=== PATIENT | female | born 1975 | race Caucasian/White ===

== ENCOUNTER 2019-12-07 11:48 | Observation (INO) | payer OTHER ==
--- NOTE | 2019-12-07 12:13 | ED ---
General Adult HPI - General Chief complaint: Chest Pain Stated complaint: chest pain, SOB Time Seen by Provider: 12/07/19 12:02 Source: patient, RN notes reviewed, old records reviewed Mode of arrival: ambulatory Limitations: no limitations - History of Present Illness Initial comments: 44-year-old female presented for evaluation of substernal and left-sided chest pain and pressure. Symptoms 7 present for the past 3 days. She has no known history of DVT or PE. She does report that the pain is worse with deep inspiration. No family history of CAD, no history of diabetes or hypertension. No chronic medical conditions. No fever or cough. No abdominal pain nausea vomiting. No diaphoresis. - Related Data Allergies Allergy/AdvReac Type Severity Reaction Status Date / Time No Known Allergies Allergy Verified 12/07/19 11:52 Review of Systems ROS Statement: Those systems with pertinent positive or pertinent negative responses have been documented in the HPI. ROS Other: All systems not noted in ROS Statement are negative. Past Medical History Past Medical History: No Reported History History of Any Multi-Drug Resistant Organisms: None Reported Past Surgical History: Tubal Ligation Past Psychological History: No Psychological Hx Reported Smoking Status: Never smoker Past Alcohol Use History: Occasional Past Drug Use History: None Reported General Exam Limitations: no limitations General appearance: alert, in no apparent distress Head exam: Present: atraumatic, normocephalic Eye exam: Present: normal appearance, PERRL ENT exam: Present: normal exam Neck exam: Present: normal inspection. Absent: tenderness, meningismus Respiratory exam: Present: normal lung sounds bilaterally. Absent: respiratory distress, wheezes Cardiovascular Exam: Present: regular rate, normal rhythm GI/Abdominal exam: Present: soft. Absent: distended, tenderness, guarding Extremities exam: Present: normal inspection, normal capillary refill. Absent: calf tenderness Back exam: Present: normal inspection Neurological exam: Present: alert, oriented X3, CN II-XII intact. Absent: motor sensory deficit Psychiatric exam: Present: normal affect, normal mood Skin exam: Present: warm, dry. Absent: cyanosis, diaphoretic Course Vital Signs 12/07/19 11:49 Temperature 98.7 F Pulse Rate 89 Respiratory 16 Rate Blood Pressure 152/86 O2 Sat by Pulse 99 Oximetry EKG Findings - EKG Comments: EKG Findings:: EKG: Normal sinus rhythm, rate of 88, W[place] interval 142, QRS duration 82, QTC 392, no ST segment elevation Medical Decision Making - Medical Decision Making 44-year-old female with 3 days of chest pain. Pain is left-sided substernal associated with dyspnea. Patient has a EKG showing sinus rhythm with no ST segment elevation. Chest x-ray negative for focal pneumonia, no acute findings. Patient has a normal CBC, normal CMP, negative initial troponin, negative d- dimer. Symptoms persist in the emergency department. I will place in observation for serial cardiac enzymes, troponin, cardiology consultation. Case is discussed with the admitting physician. - Lab Data Result diagrams: 12/07/19 12:07 12/07/19 12:07 Lab Results 12/07/19 12/07/19 12/07/19 Range/Units 12:07 12:07 12:07 WBC 6.1 (3.8-10.6) k/uL RBC 4.84 (3.80-5.40) m/uL Hgb 14.3 (11.4-16.0) gm/dL Hct 42.2 (34.0-46.0) % MCV 87.3 (80.0-100.0) fL MCH 29.6 (25.0-35.0) pg MCHC 34.0 (31.0-37.0) g/dL RDW 12.4 (11.5-15.5) % Plt Count 215 (150-450) k/uL Neutrophils % 63 % Lymphocytes % 26 % Monocytes % 6 % Eosinophils % 2 % Basophils % 1 % Neutrophils # 3.8 (1.3-7.7) k/uL Lymphocytes # 1.6 (1.0-4.8) k/uL Monocytes # 0.4 (0-1.0) k/uL Eosinophils # 0.2 (0-0.7) k/uL Basophils # 0.1 (0-0.2) k/uL PT 10.0 (9.0-12.0) sec INR 1.0 (<1.2) APTT 21.7 L (22.0-30.0) sec D-Dimer 0.28 (<0.60) mg/L FEU Sodium 138 (137-145) mmol/L Potassium 4.4 (3.5-5.1) mmol/L Chloride 103 (98-107) mmol/L Carbon Dioxide 28 (22-30) mmol/L Anion Gap 7 mmol/L BUN 10 (7-17) mg/dL Creatinine 0.78 (0.52-1.04) mg/dL Est GFR (CKD-EPI)AfAm >90 (>60 ml/min/1.73 sqM) Est GFR (CKD-EPI)NonAf >90 (>60 ml/min/1.73 sqM) Glucose 112 H (74-99) mg/dL Calcium 10.1 (8.4-10.2) mg/dL Magnesium 1.7 (1.6-2.3) mg/dL Total Bilirubin 0.4 (0.2-1.3) mg/dL AST 23 (14-36) U/L ALT 13 (4-34) U/L Alkaline Phosphatase 76 (38-126) U/L Troponin I (0.000-0.034) ng/mL Total Protein 7.1 (6.3-8.2) g/dL Albumin 4.2 (3.5-5.0) g/dL Lipase 94 (23-300) U/L 12/06/20 Range/Units 12:07 WBC (3.8-10.6) k/uL RBC (3.80-5.40) m/uL Hgb (11.4-16.0) gm/dL Hct (34.0-46.0) % MCV (80.0-100.0) fL MCH (25.0-35.0) pg MCHC (31.0-37.0) g/dL RDW (11.5-15.5) % Plt Count (150-450) k/uL Neutrophils % % Lymphocytes % % Monocytes % % Eosinophils % % Basophils % % Neutrophils # (1.3-7.7) k/uL Lymphocytes # (1.0-4.8) k/uL Monocytes # (0-1.0) k/uL Eosinophils # (0-0.7) k/uL Basophils # (0-0.2) k/uL PT (9.0-12.0) sec INR (<1.2) APTT (22.0-30.0) sec D-Dimer (<0.60) mg/L FEU Sodium (137-145) mmol/L Potassium (3.5-5.1) mmol/L Chloride (98-107) mmol/L Carbon Dioxide (22-30) mmol/L Anion Gap mmol/L BUN (7-17) mg/dL Creatinine (0.52-1.04) mg/dL Est GFR (CKD-EPI)AfAm (>60 ml/min/1.73 sqM) Est GFR (CKD-EPI)NonAf (>60 ml/min/1.73 sqM) Glucose (74-99) mg/dL Calcium (8.4-10.2) mg/dL Magnesium (1.6-2.3) mg/dL Total Bilirubin (0.2-1.3) mg/dL AST (14-36) U/L ALT (4-34) U/L Alkaline Phosphatase (38-126) U/L Troponin I <0.012 (0.000-0.034) ng/mL Total Protein (6.3-8.2) g/dL Albumin (3.5-5.0) g/dL Lipase (23-300) U/L Disposition Clinical Impression: Chest pain Disposition: ADMITTED IP TO THIS [facility] Condition: Stable Is patient prescribed a controlled substance at d/c from ED?: No Referrals: None,Stated [Primary Care Provider] - 1-2 days Decision to Admit Reason: Admit from EC Decision Date: 12/07/19 Decision Time: 13:40
--- NOTE | 2019-12-07 12:24 | XR ---
EXAMINATION TYPE: XR chest 2V DATE OF EXAM: 12/07/2019 COMPARISON: NONE HISTORY: Chest pain TECHNIQUE: Frontal and lateral views of the chest are obtained. FINDINGS: Patient is rotated. There are overlying cardiac leads. There is no focal air space opacity, pleural effusion, or pneumothorax seen. The cardiac silhouette size is within normal limits. The osseous structures are intact. IMPRESSION: No acute cardiopulmonary process.
[2019-12-07 12:30] LABS: ALT 13 U/L (4-34); AST 23 U/L (14-36); African American GFR (CKD) >90 (>60 ml/min/1.73 sqM); Albumin 4.2 g/dL (3.5-5.0); Alkaline Phosphatase 76 U/L (38-126); Anion Gap 7 mmol/L; Blood Urea Nitrogen 10 mg/dL (7-17); Calcium 10.1 mg/dL (8.4-10.2); Carbon Dioxide 28 mmol/L (22-30); Chloride 103 mmol/L (98-107); Glucose 112 mg/dL (74-99); Magnesium 1.7 mg/dL (1.6-2.3); Non-African American GFR(CKD) >90 (>60 ml/min/1.73 sqM); Potassium 4.4 mmol/L (3.5-5.1); Sodium 138 mmol/L (137-145); Total Bilirubin 0.4 mg/dL (0.2-1.3); Total Protein 7.1 g/dL (6.3-8.2)
[2019-12-07 12:45] LABS: Basophils # (A) 0.1 k/uL (0-0.2); Basophils % (A) 1 %; Eosinophils # (A) 0.2 k/uL (0-0.7); Eosinophils % (A) 2 %; HCT 42.2 % (34.0-46.0); HGB 14.3 gm/dL (11.4-16.0); Lymphocytes # (A) 1.6 k/uL (1.0-4.8); Lymphocytes % (A) 26 %; MCH 29.6 pg (25.0-35.0); MCV 87.3 fL (80.0-100.0); Monocytes # (A) 0.4 k/uL (0-1.0); Monocytes % (A) 6 %; Neutrophils # (A) 3.8 k/uL (1.3-7.7); Neutrophils % (A) 63 %; Platelet Count 215 k/uL (150-450); RBC 4.84 m/uL (3.80-5.40); RDW 12.4 % (11.5-15.5); WBC 6.1 k/uL (3.8-10.6)
[2019-12-07] MEDS ORDERED: KETOROLAC 30 MG/ML 1 ML VIAL IVP STA (12:52)
[2019-12-07 12:56] LABS: D-Dimer 0.28 mg/L FEU (<0.60)
[2019-12-07 13:07] LABS: Partial Thromboplastin Time 21.7 sec (22.0-30.0)
[2019-12-07] MEDS ORDERED: ASPIRIN 325 MG TAB PO STA (13:39)
[2019-12-07] MEDS ORDERED: MORPHINE SULFATE 4 MG/ML SYRINGE IVP STA (13:39)
[2019-12-07] MEDS ORDERED: ACETAMINOPHEN TAB 325 MG TAB PO PRN (13:40)
[2019-12-07] MEDS ORDERED: NALOXONE 0.4 MG/ML 1 ML VIAL IV PRN (13:40)
[2019-12-07] MEDS ORDERED: IBUPROFEN 400 MG TAB PO PRN (13:40)
[2019-12-07] MEDS ORDERED: MORPHINE SULFATE 2 MG/ML SYRINGE IV PRN ×2 (16:22→18:02)
[2019-12-07] MEDS ORDERED: KETOROLAC 30 MG/ML 1 ML VIAL IVP PRN (18:02)
[2019-12-07] MEDS ORDERED: HYDROcodone/APAP 5-325MG 1 EACH TAB PO PRN (18:02)
--- NOTE | 2019-12-07 18:04 | P.HPIM ---
History of Present Illness H&P Date: 12/07/19 Chief Complaint: chest pain 44-year-old female with no significant PMH presents the ED for chest pain. Patient states that this chest pain has been ongoing for the past 3 days. Initially started on Tuesday when she was sitting in the living room watching TV. Chest pain was sternal and located under her left breast. Pain was constant and described as pressure-like. Patient states that there was an elephant sitting on her chest. Pain was 9-10 out of 10 in severity. Pain is nonradiating. Pain was aggravated with deep inspiration. Her pain was associated with lightheadedness. Patient states that she got short of breath only with the chest pain. Her pain continued to worsen and to and Tuesday which prompted her to come to the ED. Patient denies any headaches, lower extremity edema, nausea or vomiting, fever or chills, cough, changes in urination or bowel habits. No changes in appetite or weight. In the ED, her vital signs were relatively stable. CBC was unremarkable. Coagulation panel was negative. D-dimer was negative. CMP showed glucose of 112. Troponin was less than 0.012, EKG showing normal sinus rhythm. Lipase was 94. Chest x-ray was negative. Patient is admitted for chest pain, rule out acute coronary syndrome, cardiology consultation. Review of Systems Pertinent positives and negatives as discussed in HPI, a complete review of systems was performed and all other systems are negative. Past Medical History Past Medical History: No Reported History History of Any Multi-Drug Resistant Organisms: None Reported Past Surgical History: Tubal Ligation Past Psychological History: No Psychological Hx Reported Smoking Status: Never smoker Past Alcohol Use History: Occasional Past Drug Use History: None Reported - Past Family History Father Additional Family Medical History / Comment(s): "thyroid issues" Medications and Allergies Home Medications Medication Instructions Recorded Confirmed Type Calcium Carbonate [Calcium] 600 mg PO DAILY 12/07/19 12/07/19 History Cholecalciferol [Vitamin D3 (25 1,000 units PO DAILY 12/07/19 12/07/19 History Mcg = 1000 Iu)] Ferrous Sulfate [Feosol] 325 mg PO Q48H 12/07/19 12/07/19 History Ferrous Sulfate [Feosol] 650 mg PO Q48H 12/07/19 12/07/19 History Multivitamins, Thera [Multivitamin 1 tab PO DAILY 12/07/19 12/07/19 History (formulary)] Allergies Allergy/AdvReac Type Severity Reaction Status Date / Time No Known Allergies Allergy Verified 12/07/19 14:01 Physical Exam Vitals: Vital Signs Temp Pulse Pulse Resp BP BP Pulse Ox 12/07/19 16:00 17 12/07/19 14:28 97.9 F 76 17 116/75 98 12/07/19 13:43 80 16 130/72 98 12/07/19 11:49 98.7 F 89 16 152/86 99 Intake and Output 12/07/19 12/07/19 12/07/19 06:59 14:59 22:59 Other: Voiding Method Toilet Weight 104.326 kg General: [non toxic], [no distress], [appears at stated age] Derm: [warm], [dry] Head: [atraumatic], [normocephalic], [symmetric] Eyes: [EOMI], [no lid lag], [anicteric sclera] Mouth: [no lip lesion], [mucus membranes moist] Cardiovascular: [S1S2 reg], [no murmur], [positive DP pulse bilateral], Lungs: [CTA bilateral], [no rhonchi, no rales] , [no accessory muscle use] Abdominal: [soft], [ nontender to palpation], [no guarding], [no appreciable organomegaly] Ext: [no gross muscle atrophy], [no edema], [no contractures] Neuro: [ CN II-XI grossly intact], [no focal neuro deficits] Psych: [Alert], [oriented], [appropriate affect] Results CBC & Chem 7: 12/07/19 12:07 12/07/19 12:07 Labs: Abnormal Lab Results - Last 24 Hours (Table) 12/07/19 12/07/19 Range/Units 12:07 12:07 APTT 21.7 L (22.0-30.0) sec Glucose 112 H (74-99) mg/dL Thrombosis Risk Factor Assmnt - Choose All That Apply Each Factor Represents 1 point: Age 41-60 years Thrombosis Risk Factor Assessment Total Risk Factor Score: 1 Thrombosis Risk Factor Assessment Level: Low Risk Assessment and Plan Assessment: Chest pain rule out acute coronary syndrome Morbid obesity Patient is chest pain that is atypical for acute coronary syndrome. Troponin was less than 0.012 with EKG showing normal sinus rhythm. Chest x-ray was unremarkable. D-dimer was negative and there are low concerns for PE. Her pain is pleuritic and likely not related to ACS. Will continue to trend troponin/EKG to rule out ACS. Patient will be placed on telemetry monitoring. Cardiology is consulted. Pain control with Tylenol, Toradol or morphine as needed. Patient has morbid obesity with BMI of 35. She would likely benefit from a structured weight loss program. Patient is pending clinical improvement. Likely DC in 1-2 days. DVT prophylaxis: [SCD] Discussed with: [Patient] Anticipated discharge: [1-2 days] Anticipated discharge place: [Home] A total of [35] minutes was spent on the care of this complex patient more than 50% of the time was spent in counseling and care coordination. Patient names her decision maker if she can't make decisions for herself. Patient will like to be full code.
[2019-12-07] MEDS ORDERED: SODIUM CHLORIDE 0.9% 1,000 ML IV SCH (22:45)
[2019-12-08 07:01] VITALS: BP 116/84; PULSE 54; RESP 19; TEMP 97.6
[2019-12-08 07:13] LABS: Cholesterol 143 mg/dL (<200); HDL Cholesterol 48 mg/dL (40-60); LDL Cholesterol,Calculated 68 mg/dL (0-99); Triglycerides 135 mg/dL (<150)
--- NOTE | 2019-12-08 08:38 | CONS ---
CONSULTATION Mrs Tinoco is a 44-year-old female with no prior history of cardiac disease who does not follow with a physician on a regular basis, who presented with symptoms of chest discomfort. The discomfort started about 3 days ago, constant, no clear respirophasic pattern to it. At times, worse with activity. She has no associated dyspnea. No dizziness. No palpitation. No PND, orthopnea, or peripheral edema. She is usually active physically without any difficulty. She has no prior cardiac history or recent cardiac workup. Her coronary risk factors are negative for smoking, hypertension or hyperlipidemia. She is nondiabetic. MEDICATION: At her home are vitamins, iron, and calcium. REVIEW OF SYSTEMS: Respiratory systems: She denies any recent cough or fever. No wheezing. GI system: No recent GI bleeding. No peptic ulcer disease. system. No dysuria or hematuria. Nervous system: No stroke or seizure. PHYSICAL EXAMINATION: 44-year-old female, alert, oriented, in no apparent distress. Blood pressure 116/80 with a heart in the 60s. HEAD: Normocephalic. Eyes sclerae anicteric. Neck good upstroke. No bruit. No jugular venous distention. LUNGS: Clear to auscultation. HEART: Regular rate and rhythm, S1, S2. No S3 with systolic murmur heard at the base, ejection type. No diastolic murmur. No rub. ABDOMEN: Soft, nontender, positive bowel sounds. No organomegaly. EXTREMITIES: No edema. Intact distal pulses. LAB DATA: Revealed troponin less than 0.012 for 3 samples. Cholesterol 143, LDL of 68, potassium of 4.4, hemoglobin of 14.3. EKG revealed a sinus mechanism, normal axis and intervals. No acute changes. Chest x-ray revealed no acute infiltrate. IMPRESSION: Chest discomfort of unclear etiology, has atypical features for ischemic heart disease probably noncardiac. RECOMMENDATION: From the cardiac standpoint, I would recommend to proceed with an echocardiogram. If there is no evidence of valve abnormality, she should be able to be discharged home today and I would recommend to proceed with a stress test as an outpatient. Thank you for this consult. We will follow with you. MMODL / IJN: [id number] /
--- NOTE | 2019-12-08 10:07 | P.DS ---
Providers Date of admission: 12/07/19 13:40 Expected date of discharge: 12/08/19 Attending physician: Elsi Durham, DO Consults: 12/07/19 13:41 Consult Physician Routine Consulting Provider: Devonte Sarabia Consult Reason/Comments: cp Do you want consulting provider notified?: Yes Primary care physician: Stated None Hospital Course: 44-year-old female with no significant PMH presents the ED for chest pain. Patient states that this chest pain has been ongoing for the past 3 days. Initially started on Tuesday when she was sitting in the living room watching TV. Chest pain was sternal and located under her left breast. Pain was constant and described as pressure-like. Patient states that there was an elephant sitting on her chest. Pain was 9-10 out of 10 in severity. Pain is nonradiating. Pain was aggravated with deep inspiration. Her pain was associated with lightheadedness. Patient states that she got short of breath only with the chest pain. Her pain continued to worsen and to and Tuesday which prompted her to come to the ED. Patient denies any headaches, lower extremity edema, nausea or vomiting, fever or chills, cough, changes in urination or bowel habits. No changes in appetite or weight. In the ED, her vital signs were relatively stable. CBC was unremarkable. Coagulation panel was negative. D-dimer was negative. CMP showed glucose of 112. Troponin was less than 0.012, EKG showing normal sinus rhythm. Lipase was 94. Chest x-ray was negative. Patient is admitted for chest pain, rule out acute coronary syndrome, cardiology consultation. Patient has chest pain that is atypical for acute coronary syndrome. Troponin was less than 0.012x3 with EKG showing normal sinus rhythm. Her pain is pleuritic and likely not related to ACS. Telemetry showed no events. Cardiology recommended Echocardiogram and stress test in the outpatient setting. Patient was seen and examined. No acute events overnight. Patient continues to report pressure-like chest pain especially with deep inspiration. She denies any shortness of breath or palpitations. No nausea or vomiting. No fever or chills. General: [non toxic], [no distress], [appears at stated age] Derm: [warm], [dry] Head: [atraumatic], [normocephalic], [symmetric] Eyes: [EOMI], [no lid lag], [anicteric sclera] Mouth: [no lip lesion], [mucus membranes moist] Cardiovascular: [S1S2 reg], [no murmur], [positive DP pulse bilateral], Lungs: [CTA bilateral], [no rhonchi, no rales] , [no accessory muscle use] Abdominal: [soft], [ nontender to palpation], [no guarding], [no appreciable organomegaly] Ext: [no gross muscle atrophy], [no edema], [no contractures] Neuro: [no focal neuro deficits] Psych: [Alert], [oriented], [appropriate affect] Chest pain rule out acute coronary syndrome Morbid obesity Patient is chest pain that is atypical for acute coronary syndrome. Troponin was less than 0.012 x 3 with EKG showing normal sinus rhythm. Chest x-ray was unremarkable. D-dimer was negative and there are low concerns for PE. Her pain is pleuritic and likely not related to ACS. Telemetry is unremarkable. Cardiology is consulted and Echocardiogram has been ordered. Cardiology recommends outpatient stress test. Patient has morbid obesity with BMI of 35. She would likely benefit from a structured weight loss program. Patient is pending clinical improvement. Likely DC today. Pertinent Studies: Chest x-ray, echocardiogram Patient Condition at Discharge: Stable Plan - Discharge Summary Discharge Rx Participant: No New Discharge Prescriptions: Continue Ferrous Sulfate [Iron (65 MG Elemental)] 325 mg PO Q48H Ferrous Sulfate [Iron (65 MG Elemental)] 650 mg PO Q48H Cholecalciferol [Vitamin D3 (25 Mcg = 1000 Iu)] 1,000 units PO DAILY Multivitamins, Thera [Multivitamin (formulary)] 1 tab PO DAILY Calcium Carbonate [Calcium] 600 mg PO DAILY Discharge Medication List Calcium Carbonate [Calcium] 600 mg PO DAILY 12/07/19 [History] Cholecalciferol [Vitamin D3 (25 Mcg = 1000 Iu)] 1,000 units PO DAILY 12/07/19 [History] Ferrous Sulfate [Iron (65 MG Elemental)] 325 mg PO Q48H 12/07/19 [History] Ferrous Sulfate [Iron (65 MG Elemental)] 650 mg PO Q48H 12/07/19 [History] Multivitamins, Thera [Multivitamin (formulary)] 1 tab PO DAILY 12/07/19 [History] Follow up Appointment(s)/Referral(s): None,Stated [Primary Care Provider] - 1-2 days Susan Dixon MD [STAFF PHYSICIAN] - 1 Week Activity/Diet/Wound Care/Special Instructions: Diet: Regular Follow-up PCP in a few days of discharge. Follow-up with cardiology within 1 week of discharge. Discharge Disposition: HOME SELF-CARE
--- NOTE | 2019-12-08 10:59 | ECHOF ---
Referral Reason: MEASUREMENTS -------- HEIGHT: 172.7 cm WEIGHT: 105.2 kg BP: 116/84 IVSd: 0.9 cm (0.6 - 1.1) LVIDd: 4.2 cm (3.9 - 5.3) LVPWd: 1.2 cm (0.6 - 1.1) IVSs: 1.4 cm LVIDs: 2.6 cm LVPWs: 1.7 cm LAESV Index (A-L): 21.57 ml/m Ao Diam: 2.8 cm (2.0 - 3.7) AV Cusp: 2.2 cm (1.5 - 2.6) MV EXCURSION: 15.792 mm (> 18.000) MV EF SLOPE: 73 mm/s (70 - 150) EPSS: 0.6 cm MV E Jovani: 1.05 m/s MV DecT: 248 ms MV A Jovani: 0.80 m/s MV E/A Ratio: 1.32 RAP: 5.00 mmHg RVSP: 24.47 mmHg FINDINGS -------- Sinus rhythm. This was a technically adequate study. The left ventricular size is normal. There is borderline concentric left ventricular hypertrophy. Overall left ventricular systolic function is normal with, an EF between 55 - 60 %. The diastolic filling pattern is normal for the age of the patient 10.48. The right ventricle is normal in size. Normal LA size by volume 22+/-6 ml/m2. The right atrium was not well visualized. Interatrial and interventricular septum intact. The aortic valve is trileaflet, and appears structurally normal. No aortic stenosis or regurgitation. The mitral valve is normal. No mitral regurgitation. Mild tricuspid regurgitation present. There is no evidence of pulmonary hypertension. The right v entricular systolic pressure, as measured by Doppler, is 24.47mmHg. There is no pulmonic regurgitation present. The aortic root size is normal. IVC Not well visulized. There is no pericardial effusion. CONCLUSIONS -------- 1. Sinus rhythm. 2. The left ventricular size is normal. 3. There is borderline concentric left ventricular hypertrophy. 4. Overall left ventricular systolic function is normal with, an EF between 55 - 60 %. 5. The diastolic filling pattern is normal for the age of the patient 10.48 6. Normal LA size by volume 22+/-6 ml/m2. 7. The right atrium was not well visualized. 8. The aortic valve is trileaflet, and appears structurally normal. No aortic stenosis or regurgitati on. 9. No mitral regurgitation. 10. Mild tricuspid regurgitation present. 11. There is no pulmonic regurgitation present. 12. IVC Not well visulized. 13. There is no pericardial effusion. RECREATION THERAPY TEACHER: Germaine Alejandro RDCS
== END 2019-12-08 11:22 | disposition home or self-care (01) ==
LOC: EC 11:48 → 1SOBS 13:40
PROVIDERS: ADMIT Internal Medicine; ATTEND Internal Medicine
DX: R07.89 Other chest pain (principal); R07.2 Precordial pain; R42 Dizziness and giddiness; R06.02 Shortness of breath; E66.01 Morbid (severe) obesity due to excess calories; Z68.35 Body mass index [BMI] 35.0-35.9, adult; Z79.899 Other long term (current) drug therapy; Z83.49 Family history of other endocrine, nutritional and metabolic diseases; Z98.51 Tubal ligation status
CPT/HCPCS: 96376 ×2; 96374; 96375; 99285; 36415; 93005; 93306; 85379; 80061; 80053; 84443; 83690; 83735; 84484 ×2; 85025; 85610; 85730; 71046; G0378 ×2; J2270 ×3; J1885

== ENCOUNTER 2020-06-25 16:23 | Inpatient (IN) | payer OTHER ==
--- NOTE | 2020-06-25 16:50 | ED ---
Abdominal Pain HPI - General Source: patient Mode of arrival: ambulatory Limitations: no limitations <Gatito Thomson - Last Filed: 06/25/20 20:48> <Hany Snyder - Last Filed: 06/25/20 21:39> - General Chief Complaint: Abdominal Pain Stated Complaint: abd pain, nausea, SOB Time Seen by Provider: 06/25/20 16:42 - History of Present Illness Initial Comments: Patient is a 45-year-old female presenting to the emergency department with multiple chief complaints. Patient states about 3 weeks ago she has developed generalized fatigues they have been persistent. Patient also reports having sore throat, general aches and pains along with occasional lower abdominal pain. She did report nausea with some nonbilious and nonbloody vomiting episodes. Does report diarrhea over the last few days. States she's been having insomnia. Is also reports decreased appetite and having hot flashes. Patient reports she just finished her menstrual period which is regular. He also reports a nonproductive cough that is intermittent in nature. No history of mono. Denies any fevers at home. (Gatito Thomson) - Related Data Home Medications Medication Instructions Recorded Confirmed No Known Home Medications 06/25/20 06/25/20 Allergies Allergy/AdvReac Type Severity Reaction Status Date / Time No Known Allergies Allergy Verified 06/25/20 18:02 Review of Systems ROS Other: All systems not noted in ROS Statement are negative. <Gatito Thomson - Last Filed: 06/25/20 20:48> ROS Other: All systems not noted in ROS Statement are negative. <Hany Snyder - Last Filed: 06/25/20 21:39> ROS Statement: Those systems with pertinent positive or pertinent negative responses have been documented in the HPI. Past Medical History Past Medical History: No Reported History History of Any Multi-Drug Resistant Organisms: None Reported Past Surgical History: Tubal Ligation Past Psychological History: No Psychological Hx Reported Smoking Status: Never smoker Past Alcohol Use History: Occasional Past Drug Use History: None Reported - Past Family History Father Additional Family Medical History / Comment(s): "thyroid issues" <Gatito Thomson - Last Filed: 06/25/20 20:48> General Exam Limitations: no limitations General appearance: alert, in no apparent distress, obese Head exam: Present: atraumatic, normocephalic, normal inspection Eye exam: Present: normal appearance, PERRL, EOMI Pupils: Present: normal accommodation ENT exam: Present: normal exam, normal oropharynx, mucous membranes moist, TM's normal bilaterally, normal external ear exam Neck exam: Present: normal inspection, full ROM. Absent: tenderness Respiratory exam: Present: normal lung sounds bilaterally. Absent: respiratory distress, wheezes Cardiovascular Exam: Present: regular rate, normal rhythm, normal heart sounds GI/Abdominal exam: Present: soft, tenderness (Positive Mcnamara sign. Upper quadrant tenderness.), normal bowel sounds. Absent: distended, guarding, rebound, rigid, hyperactive bowel sounds Extremities exam: Present: normal inspection, full ROM. Absent: tenderness Back exam: Present: normal inspection, full ROM. Absent: tenderness, CVA tenderness (R), CVA tenderness (L) Neurological exam: Present: alert, altered, normal gait Psychiatric exam: Present: normal affect, normal mood Skin exam: Present: warm, dry, intact, normal color <Gatito Thomson - Last Filed: 06/25/20 20:48> Course Vital Signs 06/25/20 06/25/20 16:30 20:36 Temperature 98.3 F Pulse Rate 106 H 81 Respiratory 18 18 Rate Blood Pressure 107/67 110/74 O2 Sat by Pulse 100 97 Oximetry Medical Decision Making - Lab Data Result diagrams: 06/25/20 17:08 06/25/20 17:08 <Gatito Thomson - Last Filed: 06/25/20 20:48> - Lab Data Result diagrams: 06/25/20 17:08 06/25/20 17:08 - Radiology Data Radiology results: report reviewed (Ultrasound shows sludge in the gallbladder) <Hany Snyder - Last Filed: 06/25/20 21:39> - Medical Decision Making Patient is a 45-year-old female presenting to emergency department with chief complaint abdominal pain. On physical examination, patient does have right upper quadrant abdominal pain with a positive Mcnamara. Her lungs are otherwise clear to auscultation. ENT examination is unremarkable. CBC is unremarkable. CMP does reveal elevated liver enzymes. Patient was reevaluated and her pain was controlled with analgesics. UA is unremarkable. Patient is not . EKG reveals sinus rhythm. Right upper quadrant ultrasound pending. At this time, patient care signed off to . (Gatito Thomson) Patient reevaluated and still complaining of discomfort. Patient does have m oderate tenderness right upper quadrant. Dr. Flores has been paged for admission Case was discussed with Dr. Flores, who will admit. (Hany Snyder) - Lab Data Lab Results 06/25/20 06/25/20 06/25/20 Range/Units 17:08 17:08 17:08 WBC 7.3 (3.8-10.6) k/uL RBC 4.40 (3.80-5.40) m/uL Hgb 13.3 (11.4-16.0) gm/dL Hct 39.4 (34.0-46.0) % MCV 89.6 (80.0-100.0) fL MCH 30.2 (25.0-35.0) pg MCHC 33.7 (31.0-37.0) g/dL RDW 13.2 (11.5-15.5) % Plt Count 243 (150-450) k/uL Neutrophils % 32 % Lymphocytes % 54 % Monocytes % 4 % Eosinophils % 3 % Basophils % 2 % Neutrophils # 2.3 (1.3-7.7) k/uL Lymphocytes # 4.0 (1.0-4.8) k/uL Monocytes # 0.3 (0-1.0) k/uL Eosinophils # 0.2 (0-0.7) k/uL Basophils # 0.2 (0-0.2) k/uL Sodium 133 L (137-145) mmol/L Potassium 4.8 (3.5-5.1) mmol/L Chloride 103 (98-107) mmol/L Carbon Dioxide 26 (22-30) mmol/L Anion Gap 4 mmol/L BUN 14 (7-17) mg/dL Creatinine 0.85 (0.52-1.04) mg/dL Est GFR (CKD-EPI)AfAm >90 (>60 ml/min/1.73 sqM) Est GFR (CKD-EPI)NonAf 83 (>60 ml/min/1.73 sqM) Glucose 98 (74-99) mg/dL Calcium 9.0 (8.4-10.2) mg/dL Total Bilirubin 0.7 (0.2-1.3) mg/dL AST 92 H (14-36) U/L ALT 83 H (4-34) U/L Alkaline Phosphatase 160 H (38-126) U/L Total Protein 6.7 (6.3-8.2) g/dL Albumin 3.5 (3.5-5.0) g/dL Urine Color Light Yellow Urine Appearance Clear (Clear) Urine pH 6.5 (5.0-8.0) Ur Specific Fountain 1.005 (1.001-1.035) Urine Protein Negative (Negative) Urine Glucose (UA) Negative (Negative) Urine Ketones Negative (Negative) Urine Blood Negative (Negative) Urine Nitrite Negative (Negative) Urine Bilirubin Negative (Negative) Urine Urobilinogen <2.0 (<2.0) mg/dL Ur Leukocyte Esterase Trace H (Negative) Urine RBC 1 (0-5) /hpf Urine WBC 2 (0-5) /hpf Ur Squamous Epith Cells 3 (0-4) /hpf Urine Bacteria Few H (None) /hpf Urine HCG, Qual (Not Detectd) 06/25/20 Range/Units 17:08 WBC (3.8-10.6) k/uL RBC (3.80-5.40) m/uL Hgb (11.4-16.0) gm/dL Hct (34.0-46.0) % MCV (80.0-100.0) fL MCH (25.0-35.0) pg MCHC (31.0-37.0) g/dL RDW (11.5-15.5) % Plt Count (150-450) k/uL Neutrophils % % Lymphocytes % % Monocytes % % Eosinophils % % Basophils % % Neutrophils # (1.3-7.7) k/uL Lymphocytes # (1.0-4.8) k/uL Monocytes # (0-1.0) k/uL Eosinophils # (0-0.7) k/uL Basophils # (0-0.2) k/uL Sodium (137-145) mmol/L Potassium (3.5-5.1) mmol/L Chloride (98-107) mmol/L Carbon Dioxide (22-30) mmol/L Anion Gap mmol/L BUN (7-17) mg/dL Creatinine (0.52-1.04) mg/dL Est GFR (CKD-EPI)AfAm (>60 ml/min/1.73 sqM) Est GFR (CKD-EPI)NonAf (>60 ml/min/1.73 sqM) Glucose (74-99) mg/dL Calcium (8.4-10.2) mg/dL Total Bilirubin (0.2-1.3) mg/dL AST (14-36) U/L ALT (4-34) U/L Alkaline Phosphatase (38-126) U/L Total Protein (6.3-8.2) g/dL Albumin (3.5-5.0) g/dL Urine Color Urine Appearance (Clear) Urine pH (5.0-8.0) Ur Specific Fountain (1.001-1.035) Urine Protein (Negative) Urine Glucose (UA) (Negative) Urine Ketones (Negative) Urine Blood (Negative) Urine Nitrite (Negative) Urine Bilirubin (Negative) Urine Urobilinogen (<2.0) mg/dL Ur Leukocyte Esterase (Negative) Urine RBC (0-5) /hpf Urine WBC (0-5) /hpf Ur Squamous Epith Cells (0-4) /hpf Urine Bacteria (None) /hpf Urine HCG, Qual Not Detected (Not Detectd) - EKG Data EKG Comments: Sinus rhythm. Rectal rate 92, [place] 142, QTC 405, QRS 80. (Gatito Thomson) Disposition Is patient prescribed a controlled substance at d/c from ED?: No <Gatito Thomson - Last Filed: 06/25/20 20:48> Is patient prescribed a controlled substance at d/c from ED?: No Decision Time: 21:36 <Hany Snyder - Last Filed: 06/25/20 21:39> Clinical Impression: Abdominal pain, Fatigue, Cholelithiasis Disposition: ADMITTED IP TO THIS [facility] Referrals: None,Stated [Primary Care Provider] - 1-2 days
[2020-06-25 17:25] LABS: Basophils # (A) 0.2 k/uL (0-0.2); Basophils % (A) 2 %; Eosinophils # (A) 0.2 k/uL (0-0.7); Eosinophils % (A) 3 %; HCT 39.4 % (34.0-46.0); HGB 13.3 gm/dL (11.4-16.0); Lymphocytes % (A) 54 %; MCH 30.2 pg (25.0-35.0); MCHC 33.7 g/dL (31.0-37.0); MCV 89.6 fL (80.0-100.0); Mean Platelet Volume 8.8; Monocytes # (A) 0.3 k/uL (0-1.0); Monocytes % (A) 4 %; Neutrophils # (A) 2.3 k/uL (1.3-7.7); Neutrophils % (A) 32 %; Platelet Count 243 k/uL (150-450); RDW 13.2 % (11.5-15.5); WBC 7.3 k/uL (3.8-10.6)
[2020-06-25 17:28] LABS: Appearance,Urine Clear (Clear); Bacteria,Urine Few /hpf; Bilirubin,Urine Negative (Negative); Blood,Urine Negative (Negative); Color,Urine Light Yellow; Glucose,Urine (UA) Negative (Negative); Ketones,Urine Negative (Negative); Leukocyte Esterase,Urine Trace (Negative); Nitrite,Urine Negative (Negative); PH, Urine 6.5 (5.0-8.0); Protein,Urine Negative (Negative); RBC,Urine 1 /hpf (0-5); Specific Gravity,Urine 1.005 (1.001-1.035); Squamous Epithelial Cell,Urine 3 /hpf (0-4); Urobilinogen,Urine <2.0 mg/dL (<2.0); WBC,Urine 2 /hpf (0-5)
[2020-06-25 17:38] LABS: ALT 83 U/L (4-34); AST 92 U/L (14-36); African American GFR (CKD) >90 (>60 ml/min/1.73 sqM); Albumin 3.5 g/dL (3.5-5.0); Alkaline Phosphatase 160 U/L (38-126); Anion Gap 4 mmol/L; Blood Urea Nitrogen 14 mg/dL (7-17); Carbon Dioxide 26 mmol/L (22-30); Chloride 103 mmol/L (98-107); Glucose 98 mg/dL (74-99); Non-African American GFR(CKD) 83 (>60 ml/min/1.73 sqM); Potassium 4.8 mmol/L (3.5-5.1); Sodium 133 mmol/L (137-145); Total Bilirubin 0.7 mg/dL (0.2-1.3); Total Protein 6.7 g/dL (6.3-8.2)
[2020-06-25] MEDS ORDERED: KETOROLAC 15 MG/ML 1 ML VIAL IVP STA (18:09)
[2020-06-25] MEDS ORDERED: HYDROmorphone 0.5 MG/0.5 ML SYRINGE IVP STA (20:25)
--- NOTE | 2020-06-25 21:08 | US ---
EXAMINATION TYPE: US abdomen limited DATE OF EXAM: 06/25/2020 COMPARISON: NONE CLINICAL HISTORY: RUQ pain, elevated enzymes. RUQ pain x 1.5 weeks. Elevated enzymes. EXAM MEASUREMENTS: Liver Length: 20.0 cm Gallbladder Wall: 0.27 cm CBD: 3 mm Right Kidney: 11.2 x 5.1 x 4.0 cm *Limited due to gas. Pancreas: Normal where visualized. Liver: Enlarged measuring up to 20 cm. Coarsened echotexture. Gallbladder: No evidence of cholelithiasis, gallbladder wall thickening, or pericholecystic edema. G allbladder sludge. Test Engine Operator reports positive sonographic Mcnamara sign. CBD: Normal, 3 mm Right Kidney: No hydronephrosis. Prominent renal pelvis versus peripelvic cyst. IMPRESSION: 1. Gallbladder sludge. No gallbladder wall thickening or pericholecystic edema to suggest acute luciano cystitis. However multi skilled operator reports positive sonographic Mcnamara sign. If there is concern for luciano cystitis, consider nuclear medicine HIDA scan. 2. Hepatomegaly with coarsened echotexture.
[2020-06-25] MEDS ORDERED: KETOROLAC 15 MG/ML 1 ML VIAL IVP PRN (21:39)
[2020-06-25] MEDS ORDERED: NALOXONE 0.4 MG/ML 1 ML VIAL IV PRN (21:39)
[2020-06-25] MEDS: SODIUM CHLORIDE 0.9% 1,000 ML IV SCH (23:25)
[2020-06-25] MEDS: HYDROmorphone 0.5 MG/0.5 ML SYRINGE IVP PRN (23:25)
[2020-06-26] MEDS: HYDROmorphone 0.5 MG/0.5 ML SYRINGE IVP PRN ×4 (02:37→20:15)
[2020-06-26 06:07] LABS: ALT 69 U/L (4-34); AST 71 U/L (14-36); African American GFR (CKD) >90 (>60 ml/min/1.73 sqM); Alkaline Phosphatase 126 U/L (38-126); Amylase 53 U/L (30-110); Anion Gap 3 mmol/L; Blood Urea Nitrogen 12 mg/dL (7-17); Calcium 8.6 mg/dL (8.4-10.2); Carbon Dioxide 27 mmol/L (22-30); Chloride 105 mmol/L (98-107); Glucose 83 mg/dL (74-99); Non-African American GFR(CKD) 85 (>60 ml/min/1.73 sqM); Potassium 4.3 mmol/L (3.5-5.1); Sodium 135 mmol/L (137-145); Total Bilirubin 0.6 mg/dL (0.2-1.3); Total Protein 5.9 g/dL (6.3-8.2)
[2020-06-26 06:10] LABS: Partial Thromboplastin Time 22.1 sec (22.0-30.0); Prothrombin Time 10.4 sec (9.0-12.0)
[2020-06-26] MEDS: SODIUM CHLORIDE 0.9% 1,000 ML IV SCH ×3 (06:36→22:09)
[2020-06-26] MEDS: IOPAMIDOL CONTRAST (ORAL USE) VIAL PO PRN ×2 (08:38→09:39)
[2020-06-26] MEDS: PANTOPRAZOLE 40 MG/10 ML VIAL IV SCH (08:40)
--- NOTE | 2020-06-26 11:19 | CT ---
EXAMINATION TYPE: CT abdomen pelvis w con DATE OF EXAM: 06/26/2020 HISTORY: Diffuse abdominal pain CT DLP: 1485.5mGycm Automated Exposure Control for Dose Reduction was Utilized. CONTRAST: CT scan of the abdomen and pelvis is performed with IV Contrast, patient injected with 100 ml mL of I sovue 300. COMPARISON: Ultrasound abdomen limited yesterday FINDINGS: LUNG BASES: Dependent atelectasis. LIVER/GB: Liver is heterogeneous consistent with areas of diffuse fatty infiltration. Liver size uppe r limits of normal. Gallbladder shows no CT evidence of intraluminal gallstones. No surrounding infla mmatory change. No significant extrahepatic biliary dilatation. There is tubular hypodense prominence posterior segment right hepatic lobe appears to extend to the level of the portal vein where it bran ches. This is less well seen on delayed phase images. Portal vein branching thrombus needs to be cons idered. This extends to the area where liver is more hyperdense on initial images. PANCREAS: No significant abnormality is seen. SPLEEN: Splenomegaly is present measuring 15.8 cm long axis axial image 24. ADRENALS: No significant abnormality is seen. KIDNEYS: Symmetric cortical medullary uptake and excretion without hydronephrosis seen bilaterally. S ubcentimeter simple appearing thin-walled cyst posterior right kidney midpole level coronal image 70. BOWEL: Oral contrast reaches the level of the proximal to mid sigmoid colon. No suspicious small or l arge bowel dilatation. UTERUS/ADNEXA: Anteverted uterus projects to right of midline. Ovaries not enlarged. Left ovary has 2 .5 cm thin-walled cyst or prominent follicle suspected axial image 75. Tubal ligation clips along the periphery of the uterus are suspected. Occasional scattered right-sided pelvic phlebolith. Trace lorenzo e fluid in pelvis. LYMPH NODES: No greater than 1cm abdominal or pelvic lymph nodes are appreciated. OSSEOUS STRUCTURES: Slight extra convex scoliotic curvature or positioning. Fairly moderate narrowing and spurring in both hip joints somewhat prominent for patient's age. OTHER: No significant additional abnormality is seen. IMPRESSION: 1. No CT evidence for acute cholecystitis. Diffuse fatty infiltration of liver and/or underlying hepa tocellular disease redemonstrated. Splenomegaly noted. Cannot exclude portal vein thrombus particular ly posterior segment right hepatic lobe branch versus periportal edema. Consider repeat vascular ultr asound liver follow-up.
[2020-06-26] MEDS ORDERED: HEPARIN SODIUM,PORCINE 5,000 UNIT/ML 1 ML VIAL IV PRN (12:50)
[2020-06-26] MEDS ORDERED: HEPARIN SODIUM,PORCINE 10,000 UNIT/ML 1 ML VIAL IV ONE (12:50)
[2020-06-26 13:04] LABS: Basophils # (A) 0.1 k/uL (0-0.2); Basophils % (A) 1 %; Eosinophils # (A) 0.4 k/uL (0-0.7); Eosinophils % (A) 7 %; HGB 12.4 gm/dL (11.4-16.0); Hypochromasia Slight; Lymphocytes % (A) 58 %; MCH 30.4 pg (25.0-35.0); MCHC 32.7 g/dL (31.0-37.0); MCV 93.2 fL (80.0-100.0); Mean Platelet Volume 9.9; Monocytes # (A) 0.3 k/uL (0-1.0); Monocytes % (A) 6 %; Neutrophils # (A) 1.2 k/uL (1.3-7.7); Neutrophils % (A) 23 %; Platelet Count 222 k/uL (150-450); RBC 4.08 m/uL (3.80-5.40); RDW 13.5 % (11.5-15.5); WBC 5.1 k/uL (3.8-10.6)
--- NOTE | 2020-06-26 13:27 | P.GSHP ---
<Ruth Blanc - Last Filed: 06/26/20 13:14> History of Present Illness H&P Date: 06/26/20 CHIEF COMPLAINT: Abdominal pain HISTORY OF PRESENT ILLNESS: This is a 45-year-old female no significant past medical history. She presented to the emergency room with multiple complaints. She reports that she has been having generalized fatigue, low-grade fever, and night sweats. She also complains of sore throat, mild cough and loss of taste. She also has been reporting abdominal lower abdominal pain across the abdomen as well as pain up into the right side of the abdomen and into the lower back. She reports that she has not felt well for 3 weeks. She's also been done with nausea. She had 3 days of diarrhea. She doesn't having some shortness of breath with activity. She had abdominal ultrasound completed showing gallbladder sludge and a positive Mcnamara sign. No evidence of gallstones. Due to patient's multiple symptoms a computed tomography scan of the abdomen was ordered as well as Covid testing. Computed tomography scan of the abdomen showing no evidence of acute cholecystitis. Diffuse fatty infiltration of the liver and/or underlying hepatocellular disease redemonstrated. Splenomegaly noted. Cannot exclude vein thrombus particularly posterior segment right hepatic lobe branch versus periportal edema. Consult has been placed for vascular surgery. Portal vein ultrasound ordered. PAST MEDICAL HISTORY: See list. PAST SURGICAL HISTORY: See list. MEDICATIONS: See list. ALLERGIES: See list. SOCIAL HISTORY: No illicit drug use. REVIEW OF SYSTEMS: CONSTITUTIONAL: Denies fever or chills. HEENT: Denies blurred vision, vision changes, or eye pain. Denies hemoptysis CARDIOVASCULAR: Denies chest pain or pressure. RESPIRATORY: No shortness of breath. GASTROINTESTINAL: See HPI for pertinent findings HEMATOLOGIC: Denies bleeding disorders. GENITOURINARY: Denies any blood in urine or increased urinary frequency. SKIN: Denies pruitis. Denies rash. PHYSICAL EXAM: VITAL SIGNS: Reviewed GENERAL: Well-developed in no acute distress. HEENT: No sclera icterus. Extraocular movements grossly intact. Moist buccal mucosa. Head is atraumatic, normocephalic. No nasal drainage. ABDOMEN: Soft. Tender with palpation of the lower abdomen and right upper quadrant. Pressing on the left side causes pain on the right. NEUROLOGIC: Alert and oriented. Cranial nerves II through XII grossly intact. LABORATORY DATA: WBC 5.1 hemoglobin 12.4 sodium 135 potassium 4.3 BUN is 12 creatinine 0.83 AST is 71 ALT 69 UA negative urine nondistended IMAGING: abdominal ultrasound completed showing gallbladder sludge and a positive Mcnamara sign. No evidence of gallstones. Computed tomography scan of the abdomen showing no evidence of acute chol ecystitis. Diffuse fatty infiltration of the liver and/or underlying hepatocellular disease redemonstrated. Splenomegaly noted. Cannot exclude vein thrombus particularly posterior segment right hepatic lobe branch versus periportal edema. ASSESSMENT: 1. Abdominal pain 2. Possible portal vein thrombosis noted on computed tomography scan of abdomen 3. Fatigue low-grade fevers, night sweats, loss of taste, sore throat, shortness of breath with activity PLAN: -Consult vascular surgery regarding portal vein thrombus -Start patient on IV heparin drip -Check portal vein ultrasound -Consult medicine for medical management -Check Covid test -Keep patient nothing by mouth -Continue with Dilaudid as needed for pain -GI prophylaxis Protonix -Continue IV fluids Physician Terrazzo Tile Setter note has been reviewed by physician. Signing provider agrees with the documented findings, assessment, and plan of care. Past Medical History Past Medical History: No Reported History History of Any Multi-Drug Resistant Organisms: None Reported Past Surgical History: Tubal Ligation Past Anesthesia/Blood Transfusion Reactions: No Reported Reaction Past Psychological History: No Psychological Hx Reported Smoking Status: Never smoker Past Alcohol Use History: Occasional Past Drug Use History: None Reported - Past Family History Father Additional Family Medical History / Comment(s): "thyroid issues" Medications and Allergies Home Medications Medication Instructions Recorded Confirmed Type No Known Home Medications 06/25/20 06/25/20 History Allergies Allergy/AdvReac Type Severity Reaction Status Date / Time No Known Allergies Allergy Verified 06/25/20 18:02 Surgical - Exam Vital Signs Temp Pulse Resp BP Pulse Ox 98.3 F 106 H 18 107/67 100 06/25/20 16:30 06/25/20 16:30 06/25/20 16:30 06/25/20 16:30 06/25/20 16:30 Results - Labs 06/26/20 05:48 06/26/20 05:46 Abnormal Lab Results - Last 24 Hours (Table) 06/25/20 06/25/20 06/26/20 Range/Units 17:08 17:08 05:46 Neutrophils # (1.3-7.7) k/uL Sodium 133 L 135 L (137-145) mmol/L AST 92 H 71 H (14-36) U/L ALT 83 H 69 H (4-34) U/L Alkaline Phosphatase 160 H (38-126) U/L Total Protein 5.9 L (6.3-8.2) g/dL Albumin 3.0 L (3.5-5.0) g/dL Ur Leukocyte Esterase Trace H (Negative) Urine Bacteria Few H (None) /hpf 06/26/20 Range/Units 05:48 Neutrophils # 1.2 L (1.3-7.7) k/uL Sodium (137-145) mmol/L AST (14-36) U/L ALT (4-34) U/L Alkaline Phosphatase (38-126) U/L Total Protein (6.3-8.2) g/dL Albumin (3.5-5.0) g/dL Ur Leukocyte Esterase (Negative) Urine Bacteria (None) /hpf Diabetes panel 06/25/20 06/26/20 Range/Units 17:08 05:46 Sodium 133 L 135 L (137-145) mmol/L Potassium 4.8 4.3 (3.5-5.1) mmol/L Chloride 103 105 (98-107) mmol/L Carbon Dioxide 26 27 (22-30) mmol/L BUN 14 12 (7-17) mg/dL Creatinine 0.85 0.83 (0.52-1.04) mg/dL Glucose 98 83 (74-99) mg/dL Calcium 9.0 8.6 (8.4-10.2) mg/dL AST 92 H 71 H (14-36) U/L ALT 83 H 69 H (4-34) U/L Alkaline Phosphatase 160 H 126 (38-126) U/L Total Protein 6.7 5.9 L (6.3-8.2) g/dL Albumin 3.5 3.0 L (3.5-5.0) g/dL Calcium panel 06/25/20 06/26/20 Range/Units 17:08 05:46 Calcium 9.0 8.6 (8.4-10.2) mg/dL Albumin 3.5 3.0 L (3.5-5.0) g/dL Pituitary panel 06/25/20 06/26/20 Range/Units 17:08 05:46 Sodium 133 L 135 L (137-145) mmol/L Potassium 4.8 4.3 (3.5-5.1) mmol/L Chloride 103 105 (98-107) mmol/L Carbon Dioxide 26 27 (22-30) mmol/L BUN 14 12 (7-17) mg/dL Creatinine 0.85 0.83 (0.52-1.04) mg/dL Glucose 98 83 (74-99) mg/dL Calcium 9.0 8.6 (8.4-10.2) mg/dL Adrenal panel 06/25/20 06/26/20 Range/Units 17:08 05:46 Sodium 133 L 135 L (137-145) mmol/L Potassium 4.8 4.3 (3.5-5.1) mmol/L Chloride 103 105 (98-107) mmol/L Carbon Dioxide 26 27 (22-30) mmol/L BUN 14 12 (7-17) mg/dL Creatinine 0.85 0.83 (0.52-1.04) mg/dL Glucose 98 83 (74-99) mg/dL Calcium 9.0 8.6 (8.4-10.2) mg/dL Total Bilirubin 0.7 0.6 (0.2-1.3) mg/dL AST 92 H 71 H (14-36) U/L ALT 83 H 69 H (4-34) U/L Alkaline Phosphatase 160 H 126 (38-126) U/L Total Protein 6.7 5.9 L (6.3-8.2) g/dL Albumin 3.5 3.0 L (3.5-5.0) g/dL <Laz Nguyen - Last Filed: 06/26/20 14:39> History of Present Illness Patient with a complex clinical picture. Presents with a three-week history of progressive fatigue, abdominal pain that started in the left lower quadrant radiated to the right lower quadrant and now involves the right side of her abdomen, mild sore throat and cough, change in taste of the foods and liquids that she usually likes to eat and drink. Underwent CAT scan which showed sple nomegaly, hepatomegaly, questionable venous thrombosis portal venous system. No Covid testing was performed in the ER. Admitted to my service because of a positive Mcnamara sign on ultrasound showing gallbladder sludge. No gallbladder wall thickening described.` Patient denies any sick contacts. Consult to the hospitalists and the vascular service was placed. Await hepatic vascular ultrasound. Await Covid test. Repeat labs tomorrow. Agree with plans for anticoagulation. Surgical - Exam Vital Signs Temp Pulse Resp BP Pulse Ox 98.3 F 106 H 18 107/67 100 06/25/20 16:30 06/25/20 16:30 06/25/20 16:30 06/25/20 16:30 06/25/20 16:30 Results - Labs 06/26/20 05:48 06/26/20 05:46 Abnormal Lab Results - Last 24 Hours (Table) 06/25/20 06/25/20 06/26/20 Range/Units 17:08 17:08 05:46 Neutrophils # (1.3-7.7) k/uL Sodium 133 L 135 L (137-145) mmol/L AST 92 H 71 H (14-36) U/L ALT 83 H 69 H (4-34) U/L Alkaline Phosphatase 160 H (38-126) U/L Total Protein 5.9 L (6.3-8.2) g/dL Albumin 3.0 L (3.5-5.0) g/dL Ur Leukocyte Esterase Trace H (Negative) Urine Bacteria Few H (None) /hpf 06/26/20 Range/Units 05:48 Neutrophils # 1.2 L (1.3-7.7) k/uL Sodium (137-145) mmol/L AST (14-36) U/L ALT (4-34) U/L Alkaline Phosphatase (38-126) U/L Total Protein (6.3-8.2) g/dL Albumin (3.5-5.0) g/dL Ur Leukocyte Esterase (Negative) Urine Bacteria (None) /hpf Diabetes panel 06/25/20 06/26/20 Range/Units 17:08 05:46 Sodium 133 L 135 L (137-145) mmol/L Potassium 4.8 4.3 (3.5-5.1) mmol/L Chloride 103 105 (98-107) mmol/L Carbon Dioxide 26 27 (22-30) mmol/L BUN 14 12 (7-17) mg/dL Creatinine 0.85 0.83 (0.52-1.04) mg/dL Glucose 98 83 (74-99) mg/dL Calcium 9.0 8.6 (8.4-10.2) mg/dL AST 92 H 71 H (14-36) U/L ALT 83 H 69 H (4-34) U/L Alkaline Phosphatase 160 H 126 (38-126) U/L Total Protein 6.7 5.9 L (6.3-8.2) g/dL Albumin 3.5 3.0 L (3.5-5.0) g/dL Calcium panel 06/25/20 06/26/20 Range/Units 17:08 05:46 Calcium 9.0 8.6 (8.4-10.2) mg/dL Albumin 3.5 3.0 L (3.5-5.0) g/dL Pituitary panel 06/25/20 06/26/20 Range/Units 17:08 05:46 Sodium 133 L 135 L (137-145) mmol/L Potassium 4.8 4.3 (3.5-5.1) mmol/L Chloride 103 105 (98-107) mmol/L Carbon Dioxide 26 27 (22-30) mmol/L BUN 14 12 (7-17) mg/dL Creatinine 0.85 0.83 (0.52-1.04) mg/dL Glucose 98 83 (74-99) mg/dL Calcium 9.0 8.6 (8.4-10.2) mg/dL Adrenal panel 06/25/20 06/26/20 Range/Units 17:08 05:46 Sodium 133 L 135 L (137-145) mmol/L Potassium 4.8 4.3 (3.5-5.1) mmol/L Chloride 103 105 (98-107) mmol/L Carbon Dioxide 26 27 (22-30) mmol/L BUN 14 12 (7-17) mg/dL Creatinine 0.85 0.83 (0.52-1.04) mg/dL Glucose 98 83 (74-99) mg/dL Calcium 9.0 8.6 (8.4-10.2) mg/dL Total Bilirubin 0.7 0.6 (0.2-1.3) mg/dL AST 92 H 71 H (14-36) U/L ALT 83 H 69 H (4-34) U/L Alkaline Phosphatase 160 H 126 (38-126) U/L Total Protein 6.7 5.9 L (6.3-8.2) g/dL Albumin 3.5 3.0 L (3.5-5.0) g/dL
[2020-06-26] MEDS ORDERED: HEPARIN SODIUM,PORCINE 5,000 UNIT/ML 1 ML VIAL IV ONE (14:00)
[2020-06-26] MEDS: HEPARIN SOD,PORK IN 0.45% NACL 25,000 UNIT in 0.45% NACL 1 250ML.BAG IV SCH (14:20)
--- NOTE | 2020-06-26 14:31 | XR ---
EXAMINATION TYPE: XR chest 2V DATE OF EXAM: 06/26/2020 COMPARISON: 12/07/2019 INDICATION: Fever and night sweats generalized fatigue TECHNIQUE: Frontal and lateral views of the chest are obtained. FINDINGS: The heart size is normal. The pulmonary vasculature is normal. There is a subtle infiltrate within the right suprahilar region. Lungs otherwise appear clear.. IMPRESSION: 1. Mild infiltrate right suprahilar region. Correlate for pneumonia. Consider atypical pneumonia. Fol low-up is recommended
--- NOTE | 2020-06-26 14:58 | P.GSCN ---
History of Present Illness Consult date: 06/26/20 Reason for Consult: Possible portal vein thrombis History of present illness: This is a 45-year-old female no significant past medical history. She presented to the emergency room with multiple complaints. She reports that she has been having generalized fatigue for 3 weeks, low-grade fever, and night sweats. She also complains of sore throat, mild cough and loss of taste. She also has been reporting abdominal lower abdominal pain across the abdomen as well as pain up into the right side of the abdomen and into the lower back for the past 3 days. She's also been having some nausea, without vomiting. She had 3 days of diarrhea, but also states she had some milk of magnesia. Her is at the bedside and states he has had to help her with activities of daily living due to her weakness and fatigue. She states she drinks 2 bottles of wine for 3-4 shots of vodka 1-2 days a week. She denies any history of liver disease, denies ever being told she had elevation of her liver enzymes. She states she has not seen a physician in some time due to no insurance. She had abdominal ultrasound completed showing gallbladder sludge and a positive Mcnamara sign. No evidence of gallstones. Due to patient's multiple symptoms a computed tomography scan of the abdomen was ordered as well as Covid testing. Computed tomography scan of the abdomen showing no evidence of acute cholecystitis. Diffuse fatty infiltration of the liver and/or underlying hepatocellular disease redemonstrated. Splenomegaly noted. Cannot exclude vein thrombus particularly posterior segment right hepatic lobe branch versus periportal edema. Hence vascular surgical consult was placed. Portal vein ultrasound ordered per surgical services, as well as heparin drip has been initiated. Patient is tentatively scheduled for a laparoscopic cholecystectomy, possible open tomorrow with Dr. Nguyen. Review of Systems A 14 point review of systems has been completed all pertinent positives and negatives as stated in the HPI. Past Medical History Past Medical History: No Reported History History of Any Multi-Drug Resistant Organisms: None Reported Past Surgical History: Tubal Ligation Past Anesthesia/Blood Transfusion Reactions: No Reported Reaction Past Psychological History: No Psychological Hx Reported Smoking Status: Never smoker Past Alcohol Use History: Occasional Past Drug Use History: None Reported - Past Family History Father Additional Family Medical History / Comment(s): "thyroid issues" Medications and Allergies Home Medications Medication Instructions Recorded Confirmed Type No Known Home Medications 06/25/20 06/25/20 History Allergies Allergy/AdvReac Type Severity Reaction Status Date / Time No Known Allergies Allergy Verified 06/25/20 18:02 Surgical - Exam Vital Signs Temp Pulse Resp BP Pulse Ox 98.3 F 106 H 18 107/67 100 06/25/20 16:30 06/25/20 16:30 06/25/20 16:30 06/25/20 16:30 06/25/20 16:30 Results Abdominal ultrasound completed showing gallbladder sludge and a positive Mcnamara sign. No evidence of gallstones. Computed tomography scan of the abdomen showing no evidence of acute cholecystitis. Diffuse fatty infiltration of the liver and/or underlying hepatocellular disease redemonstrated. Splenomegaly noted. Cannot exclude vein thrombus particularly posterior segment right hepatic lobe branch versus periportal edema. - Labs 06/26/20 05:48 06/26/20 05:46 Abnormal Lab Results - Last 24 Hours (Table) 06/25/20 06/25/20 06/26/20 Range/Units 17:08 17:08 05:46 Neutrophils # (1.3-7.7) k/uL Sodium 133 L 135 L (137-145) mmol/L AST 92 H 71 H (14-36) U/L ALT 83 H 69 H (4-34) U/L Alkaline Phosphatase 160 H (38-126) U/L Total Protein 5.9 L (6.3-8.2) g/dL Albumin 3.0 L (3.5-5.0) g/dL Ur Leukocyte Esterase Trace H (Negative) Urine Bacteria Few H (None) /hpf 06/26/20 Range/Units 05:48 Neutrophils # 1.2 L (1.3-7.7) k/uL Sodium (137-145) mmol/L AST (14-36) U/L ALT (4-34) U/L Alkaline Phosphatase (38-126) U/L Total Protein (6.3-8.2) g/dL Albumin (3.5-5.0) g/dL Ur Leukocyte Esterase (Negative) Urine Bacteria (None) /hpf Diabetes panel 06/25/20 06/26/20 Range/Units 17:08 05:46 Sodium 133 L 135 L (137-145) mmol/L Potassium 4.8 4.3 (3.5-5.1) mmol/L Chloride 103 105 (98-107) mmol/L Carbon Dioxide 26 27 (22-30) mmol/L BUN 14 12 (7-17) mg/dL Creatinine 0.85 0.83 (0.52-1.04) mg/dL Glucose 98 83 (74-99) mg/dL Calcium 9.0 8.6 (8.4-10.2) mg/dL AST 92 H 71 H (14-36) U/L ALT 83 H 69 H (4-34) U/L Alkaline Phosphatase 160 H 126 (38-126) U/L Total Protein 6.7 5.9 L (6.3-8.2) g/dL Albumin 3.5 3.0 L (3.5-5.0) g/dL Calcium panel 06/25/20 06/26/20 Range/Units 17:08 05:46 Calcium 9.0 8.6 (8.4-10.2) mg/dL Albumin 3.5 3.0 L (3.5-5.0) g/dL Pituitary panel 06/25/20 06/26/20 Range/Units 17:08 05:46 Sodium 133 L 135 L (137-145) mmol/L Potassium 4.8 4.3 (3.5-5.1) mmol/L Chloride 103 105 (98-107) mmol/L Carbon Dioxide 26 27 (22-30) mmol/L BUN 14 12 (7-17) mg/dL Creatinine 0.85 0.83 (0.52-1.04) mg/dL Glucose 98 83 (74-99) mg/dL Calcium 9.0 8.6 (8.4-10.2) mg/dL Adrenal panel 06/25/20 06/26/20 Range/Units 17:08 05:46 Sodium 133 L 135 L (137-145) mmol/L Potassium 4.8 4.3 (3.5-5.1) mmol/L Chloride 103 105 (98-107) mmol/L Carbon Dioxide 26 27 (22-30) mmol/L BUN 14 12 (7-17) mg/dL Creatinine 0.85 0.83 (0.52-1.04) mg/dL Glucose 98 83 (74-99) mg/dL Calcium 9.0 8.6 (8.4-10.2) mg/dL Total Bilirubin 0.7 0.6 (0.2-1.3) mg/dL AST 92 H 71 H (14-36) U/L ALT 83 H 69 H (4-34) U/L Alkaline Phosphatase 160 H 126 (38-126) U/L Total Protein 6.7 5.9 L (6.3-8.2) g/dL Albumin 3.5 3.0 L (3.5-5.0) g/dL Assessment and Plan Assessment: 1. Abdominal pain 2. Possible portal vein thrombosis as seen on computed tomography scan of abdomen 3. Heterogeneous liver suggestive of hepatocellular disease 4. Elevated transaminases 5. Weakness and fatigue, low-grade fevers Plan: The patient and imaging have been discussed with Dr. Steel. Agree with anticoagulation. Ultrasound of peripheral vein ordered. Await results. There is no indication for any vascular surgical intervention at this time. We will continue to follow closely. Further recommendations to follow. Thank you for this kind referral and the opportunity to participate in the care of your patient. This consultation was discussed with Dr. Steel. The impression and plan of care have been directed as dictated.
--- NOTE | 2020-06-26 15:25 | US ---
"EXAMINATION TYPE: US portal vein DATE OF EXAM: 06/26/2020 COMPARISON: CT abdomen pelvis 06/26/2020 CLINICAL HISTORY: Possible portal vein thrombus. Liver: Coarsened echotexture Color flow patency within the portal vein: There is occlusive thrombus in the posterior branch of the right portal vein. The main portal vein, left portal vein, right portal vein, and anterior branc h of the right portal vein are patent with normal direction of flow and waveforms. Portal Vein Flow: Hepatofugal Portal vein measures 12 mm, normal. Hepatic artery is patent with normal waveform. Right kidney: No hydronephrosis. IMPRESSION: Occlusive thrombus in the posterior branch of the right portal vein. A [place] level critical message alert has been initiated for Laz Nguyen MD via the [employer] 36 0 | Critical Results System on 06/26/2020 3:23 PM. This message alert has been sent to Laz Nguyen MD via the preferences provided by the clinician for the receipt of Radiology Critical Findings. [facility] ID [id number]."
[2020-06-26 16:08] LABS: C Reactive Protein 36.5 mg/L (<10.0); Magnesium 2.2 mg/dL (1.6-2.3)
--- NOTE | 2020-06-26 17:21 | P.CONS ---
History of Present Illness - Reason for Consult Consult date: 06/26/20 Medical management - Chief Complaint Abdominal pain - History of Present Illness This is a 45-year-old female with no significant past medical history that presented to the emergency room with generalized fatigue and abdominal pain. Patient said that her symptoms started a week or 2 ago. She is describing intermittent abdominal pain that is mostly in the lower abdomen radiating across to the right upper quadrant. She said the pain is at times and tolerable. She said that normally she have a bowel movement every 2-3 days. Her bowel movements were normal limits a few days ago when her give her milk of magnesia and afterward she had few episodes of diarrhea that resolved. She d enies any blood in her stool. No change in her bowel habits otherwise. Patient also reported intermittent fevers and waking up at night heavily sweating. She denies any shortness of breath or cough. No flulike symptoms. No recent sick contact. No exposure to COVID-19. Patient with a mask in public. She does not take any prescription medications at home otherwise. Patient was evaluated in the ER and an abdominal ultrasound showed a possible gallbladder sludge. Computed tomography scan of the abdomen and pelvis showed no acute findings and no suspicion for acute cholecystitis. There was a questionable portal vein thrombus that was confirmed with portal vein Doppler showing occlusive thrombus in the posterior branch of the right portal vein. Patient is currently placed on observation. I was asked to see her for medical management. Patient denies any history of blood clots in the past. She denies taking control. She does not smoke. She is not aware of any cancer diagnoses. She only knows her family history on her father's side that is positive for prostate cancer. Does not know family history from her by biological mother. Review of Systems Review of system: 14 points review of systems were obtained and were negative except to what were mentioned in the HPI. Past Medical History Past Medical History: No Reported History History of Any Multi-Drug Resistant Organisms: None Reported Past Surgical History: Tubal Ligation Past Anesthesia/Blood Transfusion Reactions: No Reported Reaction Past Psychological History: No Psychological Hx Reported Smoking Status: Never smoker Past Alcohol Use History: Occasional Past Drug Use History: None Reported - Past Family History Father Additional Family Medical History / Comment(s): "thyroid issues" Medications and Allergies Home Medications Medication Instructions Recorded Confirmed Type No Known Home Medications 06/25/20 06/25/20 History Allergies Allergy/AdvReac Type Severity Reaction Status Date / Time No Known Allergies Allergy Verified 06/25/20 18:02 Physical Exam Vitals: Vital Signs Temp Pulse Pulse Resp BP BP Pulse Ox 06/26/20 14:45 97.7 F 79 16 113/55 98 06/26/20 08:18 98.1 F 81 14 110/63 96 06/26/20 00:45 97.6 F 85 17 121/73 98 06/26/20 00:16 98.3 F 87 18 114/71 100 06/25/20 22:13 87 18 114/71 100 06/25/20 20:36 81 18 110/74 97 Intake and Output 06/26/20 06/26/20 06/26/20 06:59 14:59 22:59 Other: Voiding Method Toilet # Voids 1 3 Weight 103.873 kg General: The patient is awake and alert, in no distress Eye: there is normal conjunctiva bilaterally. Neck: The neck is supple, there is no JVD. Cardiovascular: Normal S1-S2, no S3-S4, no murmurs. Respiratory: Lungs clear to auscultation bilaterally Gastrointestinal: Abdomen is soft, there is severe tenderness throughout abdomen worse in the lower abdomen Musculoskeletal: There is no pedal edema. Neurological:. Speech is normal. Skin: Skin is warm and dry Results CBC & Chem 7: 06/26/20 05:48 06/26/20 05:46 Labs: Abnormal Lab Results - Last 24 Hours (Table) 06/25/20 06/25/20 06/26/20 Range/Units 17:08 17:08 05:46 Neutrophils # (1.3-7.7) k/uL D-Dimer (<0.60) mg/L FEU Sodium 133 L 135 L (137-145) mmol/L AST 92 H 71 H (14-36) U/L ALT 83 H 69 H (4-34) U/L Alkaline Phosphatase 160 H (38-126) U/L Lactate Dehydrogenase (313-618) U/L C-Reactive Protein (<10.0) mg/L Total Protein 5.9 L (6.3-8.2) g/dL Albumin 3.0 L (3.5-5.0) g/dL Ur Leukocyte Esterase Trace H (Negative) Urine Bacteria Few H (None) /hpf 06/26/20 06/26/20 06/26/20 Range/Units 05:48 14:47 14:47 Neutrophils # 1.2 L (1.3-7.7) k/uL D-Dimer 6.00 H (<0.60) mg/L FEU Sodium (137-145) mmol/L AST (14-36) U/L ALT (4-34) U/L Alkaline Phosphatase (38-126) U/L Lactate Dehydrogenase 1098 H (313-618) U/L C-Reactive Protein 36.5 H (<10.0) mg/L Total Protein (6.3-8.2) g/dL Albumin (3.5-5.0) g/dL Ur Leukocyte Esterase (Negative) Urine Bacteria (None) /hpf Assessment and Plan Assessment: 1. Portal vein thrombosis with occlusive thrombus in the posterior branch of the right portal vein, currently on anticoagulation with IV heparin. May transition to oral Rivaroxaban or other novel agents in the next day or 2. If insurance coverage is a problem and warfarin might be a cheaper option but patient needs to be bridged with IV heparin 2. Severe abdominal pain, exact etiology unclear. Computed tomography scan of the abdomen and pelvis with no acute findings. Abdominal ultrasound showed some gallbladder sludge. General surgery following closely. 3. Diffuse fatty liver disease 4. Obesity, counseled regarding lifestyle modification and exercise Today, I have prolonged discussion with the patient regarding her new diagnosis. We discussed that she does not have known risk factors for blood clot as she does not take control and does not smoke. We discussed the possibility of underlying cancer as a cause of VTE. I encouraged her to get a mammogram as soon as possible when she get out of the hospital. I would also obtain stool Hemoccult test and if positive I encouraged her to have a colonoscopy. We are still waiting on COVID-19 test results. I also consulted social work as patient verbalizes concern that she does not have health insurance and would like to know her options
[2020-06-27 03:36] LABS: HCT 35.7 % (34.0-46.0); HGB 12.1 gm/dL (11.4-16.0); MCH 30.9 pg (25.0-35.0); Platelet Count 227 k/uL (150-450); RBC 3.92 m/uL (3.80-5.40); RDW 13.4 % (11.5-15.5); WBC 5.5 k/uL (3.8-10.6)
[2020-06-27] MEDS: HYDROmorphone 0.5 MG/0.5 ML SYRINGE IVP PRN ×5 (03:41→20:49)
[2020-06-27 03:59] LABS: ALT 56 U/L (4-34); AST 67 U/L (14-36); African American GFR (CKD) >90 (>60 ml/min/1.73 sqM); Albumin 2.7 g/dL (3.5-5.0); Alkaline Phosphatase 116 U/L (38-126); Anion Gap 3 mmol/L; Blood Urea Nitrogen 7 mg/dL (7-17); Calcium 8.2 mg/dL (8.4-10.2); Carbon Dioxide 25 mmol/L (22-30); Chloride 107 mmol/L (98-107); Glucose 90 mg/dL (74-99); Non-African American GFR(CKD) >90 (>60 ml/min/1.73 sqM); Potassium 4.3 mmol/L (3.5-5.1); Sodium 135 mmol/L (137-145); Total Bilirubin 0.7 mg/dL (0.2-1.3); Total Protein 5.3 g/dL (6.3-8.2)
[2020-06-27 04:26] LABS: Eosinophils # (M) 0.33 k/uL (0-0.7); Lymphocytes # (M) 3.69 k/uL (1.0-4.8); Monocytes # (M) 0.17 k/uL (0-1.0); Neutrophils # (M) 1.32 k/uL (1.3-7.7); Neutrophils % (M) 24 %; Nucleated Red Blood Cells 0 /100 WBC (0-0); Total Cells Counted 100
[2020-06-27] MEDS: HEPARIN SOD,PORK IN 0.45% NACL 25,000 UNIT in 0.45% NACL 1 250ML.BAG IV SCH ×2 (04:37→14:56)
[2020-06-27] MEDS: SODIUM CHLORIDE 0.9% 1,000 ML IV SCH ×2 (04:38→11:50)
[2020-06-27] MEDS: PANTOPRAZOLE 40 MG/10 ML VIAL IV SCH (08:18)
--- NOTE | 2020-06-27 09:54 | P.PN ---
Subjective Progress Note Date: 06/27/20 Principal diagnosis: Abdominal pain The patient was seen and examined at the bedside with Dr. Steel. Her abdominal pain is improved some. She still states that she has some low abdominal cramping and pain that radiates up to the right upper quadrant of her abdomen. She has been afebrile. Denies any vomiting. She underwent a portal vein ultrasound yesterday that showed occlusive thrombus in the posterior branch of the right portal vein. Veins on a heparin drip. Coronavirus PCR pending. Objective - Vital Signs Vital signs: Vital Signs Temp 98.4 F 06/27/20 08:16 Pulse 82 06/27/20 08:16 Resp 16 06/27/20 08:16 BP 101/57 06/27/20 08:16 Pulse Ox 98 06/27/20 08:16 Intake & Output 06/26/20 06/27/20 06/27/20 18:59 06:59 18:59 Intake Total 1784.643 Balance 1784.643 Intake: Intake, IV Titration 1784.643 Amount Heparin Sod,Pork in 0.45% 224.643 NaCl 25,000 unit In 0.45 % NaCl 1 250ml.bag @ 18 UNITS/KG/HR 18.697 mls/hr IV .[id number] [facility] Rx#: [id number] Sodium Chloride 0.9% 1, 1560 000 ml @ 130 mls/hr IV . Q7H42M [facility] Rx#:[id number] Other: Voiding Method Toilet Toilet # Voids 3 2 - Exam General appearance: The patient is alert, oriented, in no acute distress. HET: Head is normocephalic and atraumatic. Conjunctiva pink. Sclera anicteric.. Neck: Supple without lymphadenopathy. Heart: S1 S2. Regular rate and rhythm. Lungs: Lungs clear to auscultation bilaterally Abdomen: Soft, obese, diffuse lower abdominal tenderness and right upper quadrant tenderness, nondistended with bowel sounds. No guarding or rigidity. Extremities: Normal skin color and turgor. No cyanosis, rash, ulceration, clubbing, or edema. Radial and pedal pulses are 2/4 bilaterally. Neurological: No focal deficits. Strength and sensation are grossly intact. - Labs CBC & Chem 7: 06/27/20 03:13 06/27/20 03:13 Labs: Abnormal Lab Results - Last 24 Hours (Table) 06/26/20 06/26/20 06/26/20 Range/Units 05:48 14:47 14:47 Neutrophils # 1.2 L (1.3-7.7) k/uL APTT (22.0-30.0) sec D-Dimer 6.00 H (<0.60) mg/L FEU Sodium (137-145) mmol/L Calcium (8.4-10.2) mg/dL AST (14-36) U/L ALT (4-34) U/L Lactate Dehydrogenase 1098 H (313-618) U/L C-Reactive Protein 36.5 H (<10.0) mg/L Total Protein (6.3-8.2) g/dL Albumin (3.5-5.0) g/dL 06/26/20 06/27/20 06/27/20 Range/Units 19:18 03:13 03:13 Neutrophils # (1.3-7.7) k/uL APTT 132.2 H* 67.8 H (22.0-30.0) sec D-Dimer (<0.60) mg/L FEU Sodium 135 L (137-145) mmol/L Calcium 8.2 L (8.4-10.2) mg/dL AST 67 H (14-36) U/L ALT 56 H (4-34) U/L Lactate Dehydrogenase (313-618) U/L C-Reactive Protein (<10.0) mg/L Total Protein 5.3 L (6.3-8.2) g/dL Albumin 2.7 L (3.5-5.0) g/dL Assessment and Plan Assessment: 1. Abdominal pain 2. Portal vein with occlusive thrombus in the posterior branch of right portal vein per ultrasound 3. Heterogeneous liver suggestive of hepatocellular disease 4. Elevated transaminases 5. Weakness and fatigue, low-grade fevers Plan: The patient and imaging have been reviewed by Dr. Steel. Due to the location of the thrombus in the posterior branch of the right portal vein, there is no indication for vascular surgical intervention. Agree with medicine to transition to oral anticoagulation. There are the working with social work on decision of medication, and we will defer to them. Would consider possible hematology follow-up as an outpatient. We will sign off at this time. The impression and plan of care has been dictated as directed. I performed a history and examination of this patient, discussed the same with the dictator. I agree with the dictator's note ,documented as a scribe. Any additional findings or plans will be noted.
--- NOTE | 2020-06-27 11:10 | P.PN ---
<Ruth Blanc - Last Filed: 06/27/20 10:57> Subjective Progress Note Date: 06/27/20 CHIEF COMPLAINT: Abdominal pain HISTORY OF PRESENT ILLNESS: Patient is still reporting lower abdominal pain and pain along the right side of the abdomen that is the same as yesterday. She does report nausea, but no vomiting. She is having flatus. Portal vein ultrasound shows occlusive thrombus in the posterior branch of the right portal vein. Chest x-ray mild infiltrate in the right suprahilar region PHYSICAL EXAM: VITAL SIGNS: Reviewed. GENERAL: Well-developed in no acute distress. HEENT: No sclera icterus. Extraocular movements grossly intact. Moist buccal mucosa. Head is atraumatic, normocephalic. ABDOMEN: Soft. Nondistended. Tenderness with palpation of the lower abdomen and right side of abdomen NEUROLOGIC: Alert and oriented. Cranial nerves II through XII grossly intact. ASSESSMENT: 1. Abdominal pain 2. Portal vein with occlusive thrombus in the posterior branch of the right portal vein per ultrasound 3. Fatigue, low-grade fevers, night sweats, loss of taste, sore throat, shortness of breath with activity PLAN: -We'll start patient on Rocephin and Flagyl -Appreciate vascular and medicine recommendations -Continue with IV heparin for anticoagulation. Medicine to transition patient to oral anticoagulation -Agree with hematology follow-up as outpatient -Covid test pending Physician Test Specialist note has been reviewed by physician. Signing provider agrees with the documented findings, assessment, and plan of care. Objective - Vital Signs Vital signs: Vital Signs Temp 98.4 F 06/27/20 08:16 Pulse 82 06/27/20 08:16 Resp 16 06/27/20 08:16 BP 101/57 06/27/20 08:16 Pulse Ox 98 06/27/20 08:16 Intake & Output 06/26/20 06/27/20 06/27/20 18:59 06:59 18:59 Intake Total 1784.643 Balance 1784.643 Intake: Intake, IV Titration 1784.643 Amount Heparin Sod,Pork in 0.45% 224.643 NaCl 25,000 unit In 0.45 % NaCl 1 250ml.bag @ 18 UNITS/KG/HR 18.697 mls/hr IV .[id number] [facility] Rx#: [id number] Sodium Chloride 0.9% 1, 1560 000 ml @ 130 mls/hr IV . Q7H42M [facility] Rx#:[id number] Other: Voiding Method Toilet Toilet # Voids 3 2 - Labs CBC & Chem 7: 06/27/20 03:13 06/27/20 03:13 Labs: Abnormal Lab Results - Last 24 Hours (Table) 06/26/20 06/26/20 06/26/20 Range/Units 05:48 14:47 14:47 Neutrophils # 1.2 L (1.3-7.7) k/uL APTT (22.0-30.0) sec D-Dimer 6.00 H (<0.60) mg/L FEU Sodium (137-145) mmol/L Calcium (8.4-10.2) mg/dL AST (14-36) U/L ALT (4-34) U/L Lactate Dehydrogenase 1098 H (313-618) U/L C-Reactive Protein 36.5 H (<10.0) mg/L Total Protein (6.3-8.2) g/dL Albumin (3.5-5.0) g/dL 06/26/20 06/27/20 06/27/20 Range/Units 19:18 03:13 03:13 Neutrophils # (1.3-7.7) k/uL APTT 132.2 H* 67.8 H (22.0-30.0) sec D-Dimer (<0.60) mg/L FEU Sodium 135 L (137-145) mmol/L Calcium 8.2 L (8.4-10.2) mg/dL AST 67 H (14-36) U/L ALT 56 H (4-34) U/L Lactate Dehydrogenase (313-618) U/L C-Reactive Protein (<10.0) mg/L Total Protein 5.3 L (6.3-8.2) g/dL Albumin 2.7 L (3.5-5.0) g/dL <Laz Nguyen - Last Filed: 06/27/20 13:04> Subjective As above. Patient still having pain. May be slightly improved. CAT scan findings and vascular surgery consultation reviewed. CAT scan does show some degree of mild wall thickening of the terminal ileum and cecum. This may be on the basis of mild ischemia from venous congestion. Continue conservative management. Begin empiric antibiotics for ischemic bowel and chest x-ray findings of possible pneumonia. Await Covid testing. Agree with anticoagulation. No surgical intervention planned at this time however we'll follow closely. Objective - Vital Signs Vital signs: Vital Signs Temp 98.4 F 06/27/20 08:16 Pulse 82 06/27/20 08:16 Resp 16 06/27/20 08:16 BP 101/57 06/27/20 08:16 Pulse Ox 98 06/27/20 08:16 Intake & Output 06/26/20 06/27/20 06/27/20 18:59 06:59 18:59 Intake Total 1784.643 88.445 Balance 1784.643 88.445 Intake: Intake, IV Titration 1784.643 88.445 Amount Heparin Sod,Pork in 0.45% 224.643 88.445 NaCl 25,000 unit In 0.45 % NaCl 1 250ml.bag @ 18 UNITS/KG/HR 18.697 mls/hr IV .[id number] [facility] Rx#: [id number] Sodium Chloride 0.9% 1, 1560 000 ml @ 130 mls/hr IV . Q7H42M [facility] Rx#:[id number] Other: Voiding Method Toilet Toilet # Voids 3 2 - Labs CBC & Chem 7: 06/27/20 03:13 06/27/20 03:13 Labs: Abnormal Lab Results - Last 24 Hours (Table) 06/26/20 06/26/20 06/26/20 Range/Units 05:48 14:47 14:47 Neutrophils # 1.2 L (1.3-7.7) k/uL APTT (22.0-30.0) sec D-Dimer 6.00 H (<0.60) mg/L FEU Sodium (137-145) mmol/L Plasma Lactic Acid Roel (0.7-2.0) mmol/L Calcium (8.4-10.2) mg/dL AST (14-36) U/L ALT (4-34) U/L Lactate Dehydrogenase 1098 H (313-618) U/L C-Reactive Protein 36.5 H (<10.0) mg/L Total Protein (6.3-8.2) g/dL Albumin (3.5-5.0) g/dL 06/26/20 06/27/20 06/27/20 Range/Units 19:18 03:13 03:13 Neutrophils # (1.3-7.7) k/uL APTT 132.2 H* 67.8 H (22.0-30.0) sec D-Dimer (<0.60) mg/L FEU Sodium 135 L (137-145) mmol/L Plasma Lactic Acid Roel (0.7-2.0) mmol/L Calcium 8.2 L (8.4-10.2) mg/dL AST 67 H (14-36) U/L ALT 56 H (4-34) U/L Lactate Dehydrogenase (313-618) U/L C-Reactive Protein (<10.0) mg/L Total Protein 5.3 L (6.3-8.2) g/dL Albumin 2.7 L (3.5-5.0) g/dL 06/27/20 06/27/20 Range/Units 10:25 10:25 Neutrophils # (1.3-7.7) k/uL APTT 50.3 H (22.0-30.0) sec D-Dimer (<0.60) mg/L FEU Sodium (137-145) mmol/L Plasma Lactic Acid Roel 0.6 L (0.7-2.0) mmol/L Calcium (8.4-10.2) mg/dL AST (14-36) U/L ALT (4-34) U/L Lactate Dehydrogenase (313-618) U/L C-Reactive Protein (<10.0) mg/L Total Protein (6.3-8.2) g/dL Albumin (3.5-5.0) g/dL
[2020-06-27] MEDS: metroNIDAZOLE-NS PMX 500 MG in SALINE 1 100ML.BAG IVPB SCH ×2 (11:45→15:54)
--- NOTE | 2020-06-27 14:21 | P.PN ---
Subjective Progress Note Date: 06/27/20 Principal diagnosis: Portal vein thrombosis Patient still having severe abdominal pain mostly in the lower abdomen. She said that her abdominal pain is worse with Jell-O. She denies nausea or vomiting. No bowel movement since admission. Objective - Vital Signs Vital signs: Vital Signs Temp 98.4 F 06/27/20 08:16 Pulse 82 06/27/20 08:16 Resp 16 06/27/20 08:16 BP 101/57 06/27/20 08:16 Pulse Ox 98 06/27/20 08:16 Intake & Output 06/26/20 06/27/20 06/27/20 18:59 06:59 18:59 Intake Total 1784.643 88.445 Balance 1784.643 88.445 Intake: Intake, IV Titration 1784.643 88.445 Amount Heparin Sod,Pork in 0.45% 224.643 88.445 NaCl 25,000 unit In 0.45 % NaCl 1 250ml.bag @ 18 UNITS/KG/HR 18.697 mls/hr IV .[id number] [facility] Rx#: [id number] Sodium Chloride 0.9% 1, 1560 000 ml @ 130 mls/hr IV . Q7H42M [facility] Rx#:[id number] Other: Voiding Method Toilet Toilet # Voids 3 2 - Exam General: The patient is awake and alert, in no distress Eye: there is normal conjunctiva bilaterally. Neck: The neck is supple, there is no JVD. Cardiovascular: Normal S1-S2, no S3-S4, no murmurs. Respiratory: Lungs clear to auscultation bilaterally Gastrointestinal: Abdomen is soft, there is severe tenderness to light palpation throughout the abdomen Musculoskeletal: There is no pedal edema. Neurological:. Speech is normal. Skin: Skin is warm and dry - Labs CBC & Chem 7: 06/27/20 03:13 06/27/20 03:13 Labs: Abnormal Lab Results - Last 24 Hours (Table) 06/26/20 06/26/20 06/26/20 Range/Units 14:47 14:47 19:18 APTT 132.2 H* (22.0-30.0) sec D-Dimer 6.00 H (<0.60) mg/L FEU Sodium (137-145) mmol/L Plasma Lactic Acid Roel (0.7-2.0) mmol/L Calcium (8.4-10.2) mg/dL AST (14-36) U/L ALT (4-34) U/L Lactate Dehydrogenase 1098 H (313-618) U/L C-Reactive Protein 36.5 H (<10.0) mg/L Total Protein (6.3-8.2) g/dL Albumin (3.5-5.0) g/dL 06/27/20 06/27/20 06/27/20 Range/Units 03:13 03:13 10:25 APTT 67.8 H 50.3 H (22.0-30.0) sec D-Dimer (<0.60) mg/L FEU Sodium 135 L (137-145) mmol/L Plasma Lactic Acid Roel (0.7-2.0) mmol/L Calcium 8.2 L (8.4-10.2) mg/dL AST 67 H (14-36) U/L ALT 56 H (4-34) U/L Lactate Dehydrogenase (313-618) U/L C-Reactive Protein (<10.0) mg/L Total Protein 5.3 L (6.3-8.2) g/dL Albumin 2.7 L (3.5-5.0) g/dL 06/27/20 Range/Units 10:25 APTT (22.0-30.0) sec D-Dimer (<0.60) mg/L FEU Sodium (137-145) mmol/L Plasma Lactic Acid Roel 0.6 L (0.7-2.0) mmol/L Calcium (8.4-10.2) mg/dL AST (14-36) U/L ALT (4-34) U/L Lactate Dehydrogenase (313-618) U/L C-Reactive Protein (<10.0) mg/L Total Protein (6.3-8.2) g/dL Albumin (3.5-5.0) g/dL Assessment and Plan Assessment: This is a 45-year-old female with no known past medical history that presented to the emergency room with worsening abdominal pain, patient was evaluated in the ER and currently admitted to the hospital for further management of her medical problems noted below. 1. Portal vein thrombosis with occlusive thrombus in the posterior branch of the right portal vein, currently on anticoagulation with IV heparin. Will transition to Lovenox tonight at 2100. Plan to bridge Coumadin with Lovenox for the next 4 days at home. 2. Severe abdominal pain, exact etiology unclear. Computed tomography scan of the abdomen and pelvis with no acute findings. Abdominal ultrasound showed some gallbladder sludge. General surgery following closely. 3. Diffuse fatty liver disease 4. Obesity, counseled regarding lifestyle modification and exercise Today, I reviewed her medication list and lab work results. COVID-19 test negative. It is unclear to me why patient was started on antibiotic by general surgery. I would clarify with them. Patient needs follow-up with hematology outpatient. She is currently in the process try to obtain medical insurance. The hospital would pay for her Lovenox cost. If improving clinically anticipate discharge home tomorrow
[2020-06-27] MEDS ORDERED: WARFARIN 10 MG TAB PO ONE (18:00)
[2020-06-27] MEDS: ENOXAPARIN 100 MG/ML SYRINGE SQ SCH (22:39)
[2020-06-28] MEDS: metroNIDAZOLE-NS PMX 500 MG in SALINE 1 100ML.BAG IVPB SCH ×3 (00:33→18:08)
[2020-06-28] MEDS: HYDROmorphone 0.5 MG/0.5 ML SYRINGE IVP PRN ×4 (05:13→22:36)
[2020-06-28] MEDS: PANTOPRAZOLE 40 MG TABLET PO SCH (08:09)
[2020-06-28 08:29] LABS: INR 1.3 (<1.2); Partial Thromboplastin Time 27.6 sec (22.0-30.0); Prothrombin Time 12.9 sec (9.0-12.0)
[2020-06-28 09:35] LABS: Basophils # (A) 0.1 k/uL (0-0.2); Basophils % (A) 1 %; Eosinophils # (A) 0.2 k/uL (0-0.7); Eosinophils % (A) 3 %; Hypochromasia Slight; Lymphocytes # (A) 3.3 k/uL (1.0-4.8); Lymphocytes % (A) 60 %; MCH 30.6 pg (25.0-35.0); MCHC 33.3 g/dL (31.0-37.0); MCV 91.7 fL (80.0-100.0); Mean Platelet Volume 9.1; Monocytes # (A) 0.3 k/uL (0-1.0); Monocytes % (A) 5 %; Neutrophils # (A) 1.5 k/uL (1.3-7.7); Neutrophils % (A) 27 %; Platelet Count 202 k/uL (150-450); RBC 3.92 m/uL (3.80-5.40); RDW 13.5 % (11.5-15.5); WBC 5.6 k/uL (3.8-10.6)
[2020-06-28] MEDS: ENOXAPARIN 100 MG/ML SYRINGE SQ SCH ×2 (10:08→21:15)
--- NOTE | 2020-06-28 12:34 | P.PN ---
Subjective Progress Note Date: 06/28/20 CHIEF COMPLAINT: Portal venous thrombosis and abdominal pain HISTORY OF PRESENT ILLNESS: The patient is a 45-year-old female who presents with almost 1 week of lower abdominal pain including right upper quadrant abdominal pain. Patient recently diagnosed with portal venous thrombosis. She reports being started on anticoagulant therapy at least for 24 hours. She states the pain is still persistent moderate. She can tolerate liquids but cannot tolerate solids. She demonstrates frustration and she has persistent abdominal pain. ROS: No fevers or chills. No new chest pain. No productive sputum PHYSICAL EXAM: VITAL SIGNS: Reviewed CONSTITUTIONAL: Well developed and in no acute distress. EYES: Conjuctivae without sclera icterus. Extraocular movements grossly intact. HEAD, EARS, NOSE, THROAT: Moist buccal mucosa. Head is atraumatic, normocephalic. Hears conversational speech. No nasal drainage. NECK: Supple. No thyroidomegaly. RESPIRATORY: Non-labored respirations and equal bilateral excursions. CARDIOVASCULAR: Palpable 2+ radial pulses. Regular rate. Regular rhythm. ABDOMEN: No peritonitis. Tender right upper quadrant, right lower quadrant, left lower quadrant. MUSCULOSKELETAL: No gross deformity of the lower extremities noted. No clubbing. No cyanosis. SKIN: Good skin turgor. Well perfused. NEUROLOGIC: Cranial nerves II through XII grossly intact. No focal or lateralizing signs. PSYCH: Appropriate affect. Alert and oriented to person, place and time. CLINICAL LABS: White blood cell count normal, 5.6 ECHO: Report from November 2019 independent review demonstrates ejection fraction of 55-60 %. Borderline left ventricular hypertrophy. No mitral or aortic stenosis or reflux. STUDIES: Ultrasound of the gallbladder independently reviewed demonstrating sedimentation along the dependent portion of the gallbladder. CT of the abdomen pelvis independently reviewed demonstrating enlarged left ovary. No gross inflammatory changes along the colon identified. RADIOLOGY: CT of the abdomen and pelvis report reviewed demonstrating questionable portal vein thrombosis. Ultrasound of portal vein confirms right portal vein thrombosis. ASSESSMENT: 1. Portal vein thrombosis 2. Left ovarian cyst 3. Generalized abdominal pain PLAN: 1. Recommend continue anticoagulation. I did review with the patient to expect prolonged abdominal pain with history of portal vein thrombosis. 2. Recommend adjust pain management to include Tylenol scheduled. 3. Alternatively, for persistent abdominal pain strict nothing by mouth status with TPN was reviewed. Patient wishes to continue with liquid diet. May likely discharge home on a liquid diet as portal vein thrombosis related abdominal pain improves. Objective - Vital Signs Vital signs: Vital Signs Temp 98.2 F 06/28/20 08:33 Pulse 96 06/28/20 08:33 Resp 16 06/28/20 08:33 BP 127/82 06/28/20 08:33 Pulse Ox 96 06/28/20 08:33 Intake & Output 06/27/20 06/28/20 06/28/20 18:59 06:59 18:59 Intake Total 88.445 200 Balance 88.445 200 Intake: Intake, IV Titration 88.445 Amount Heparin Sod,Pork in 0.45% 88.445 NaCl 25,000 unit In 0.45 % NaCl 1 250ml.bag @ 18 UNITS/KG/HR 18.697 mls/hr IV .[id number] [facility] Rx#: [id number] Oral 200 Other: Voiding Method Toilet Toilet # Voids 2 1 - Labs CBC & Chem 7: 06/28/20 07:50 06/27/20 03:13 Labs: Abnormal Lab Results - Last 24 Hours (Table) 06/28/20 Range/Units 07:50 PT 12.9 H (9.0-12.0) sec INR 1.3 H (<1.2) Assessment and Plan (1) Portal vein thrombosis Current Visit: Yes Status: Acute Code(s): I81 - PORTAL VEIN THROMBOSIS SNOMED Code(s): 56000902 (2) Morbid obesity due to excess calories Current Visit: Yes Status: Acute Code(s): E66.01 - MORBID (SEVERE) OBESITY DUE TO EXCESS CALORIES SNOMED Code(s): 437048631 (3) Cholelithiasis Current Visit: Yes Status: Acute Code(s): K80.20 - CALCULUS OF GALLBLADDER W/O CHOLECYSTITIS W/O OBSTRUCTION SNOMED Code(s): 739764517
[2020-06-28] MEDS ORDERED: ACETAMINOPHEN TAB 500 MG TAB PO SCH (14:15)
[2020-06-28] MEDS: ACETAMINOPHEN TAB 325 MG TAB PO SCH ×2 (14:43→21:15)
--- NOTE | 2020-06-28 16:28 | P.PN ---
Subjective Progress Note Date: 06/28/20 Principal diagnosis: Portal vein thrombosis Patient is still complaining of abdominal pain. He is not better compared to yesterday. Pain is mostly in the lower abdomen Objective - Vital Signs Vital signs: Vital Signs Temp 97.8 F 06/28/20 14:45 Pulse 75 06/28/20 14:45 Resp 18 06/28/20 14:45 BP 102/64 06/28/20 14:45 Pulse Ox 97 06/28/20 14:45 Intake & Output 06/27/20 06/28/20 06/28/20 18:59 06:59 18:59 Intake Total 88.445 200 Balance 88.445 200 Intake: Intake, IV Titration 88.445 Amount Heparin Sod,Pork in 0.45% 88.445 NaCl 25,000 unit In 0.45 % NaCl 1 250ml.bag @ 18 UNITS/KG/HR 18.697 mls/hr IV .[id number] [facility] Rx#: [id number] Oral 200 Other: Voiding Method Toilet Toilet # Voids 2 1 - Exam General: The patient is awake and alert, in no distress Eye: there is normal conjunctiva bilaterally. Neck: The neck is supple, there is no JVD. Cardiovascular: Normal S1-S2, no S3-S4, no murmurs. Respiratory: Lungs clear to auscultation bilaterally Gastrointestinal: Abdomen is soft, there is severe tenderness to light palpation throughout the abdomen Musculoskeletal: There is no pedal edema. Neurological:. Speech is normal. Skin: Skin is warm and dry - Labs CBC & Chem 7: 06/28/20 07:50 06/27/20 03:13 Labs: Abnormal Lab Results - Last 24 Hours (Table) 06/28/20 Range/Units 07:50 PT 12.9 H (9.0-12.0) sec INR 1.3 H (<1.2) Assessment and Plan Assessment: This is a 45-year-old female with no known past medical history that presented to the emergency room with worsening abdominal pain, patient was evaluated in the ER and currently admitted to the hospital for further management of her medical problems noted below. 1. Portal vein thrombosis with occlusive thrombus in the posterior branch of the right portal vein, currently on anticoagulation with subcu Lovenox bridging to Coumadin pharmacy to dose 2. Severe abdominal pain, exact etiology unclear. Computed tomography scan of the abdomen and pelvis with no acute findings. Abdominal ultrasound showed some gallbladder sludge. General surgery following closely. Been attributed to portal vein thrombosis. We will continue pain management. 3. Diffuse fatty liver disease 4. Obesity, counseled regarding lifestyle modification and exercise Today, I reviewed her medication list and lab work results. COVID-19 test negative. Patient needs follow-up with hematology outpatient. Continue current management. Anticipate discharge home within the next day or 2.
[2020-06-28] MEDS ORDERED: WARFARIN 7.5 MG TAB PO ONE (18:00)
[2020-06-28 20:20] VITALS: RESP 16
[2020-06-28] MEDS: ONDANSETRON 4 MG/2 ML VIAL IVP PRN (22:36)
[2020-06-29] MEDS: metroNIDAZOLE-NS PMX 500 MG in SALINE 1 100ML.BAG IVPB SCH ×3 (00:07→09:03)
[2020-06-29] MEDS: ACETAMINOPHEN TAB 325 MG TAB PO SCH ×2 (03:00→09:04)
[2020-06-29 06:58] LABS: Basophils # (A) 0.1 k/uL (0-0.2); Basophils % (A) 1 %; Eosinophils # (A) 0.3 k/uL (0-0.7); Eosinophils % (A) 6 %; Lymphocytes # (A) 2.7 k/uL (1.0-4.8); Lymphocytes % (A) 60 %; MCH 30.6 pg (25.0-35.0); MCHC 33.5 g/dL (31.0-37.0); MCV 91.3 fL (80.0-100.0); Mean Platelet Volume 9.5; Monocytes # (A) 0.3 k/uL (0-1.0); Monocytes % (A) 6 %; Neutrophils # (A) 1.2 k/uL (1.3-7.7); Neutrophils % (A) 26 %; Platelet Count 188 k/uL (150-450); RBC 3.94 m/uL (3.80-5.40); RDW 13.5 % (11.5-15.5); WBC 4.5 k/uL (3.8-10.6)
[2020-06-29] MEDS: ONDANSETRON 4 MG/2 ML VIAL IVP PRN (07:59)
[2020-06-29] MEDS: PANTOPRAZOLE 40 MG TABLET PO SCH (07:59)
[2020-06-29 08:55] LABS: Poikilocytosis (M) Present
[2020-06-29 09:20] LABS: INR 2.55 (0.90-1.11); Prothrombin Time 26.3 sec (9.9-11.9)
[2020-06-29] MEDS: ENOXAPARIN 100 MG/ML SYRINGE SQ SCH (09:34)
--- NOTE | 2020-06-29 09:34 | P.PN ---
Subjective Progress Note Date: 06/29/20 Principal diagnosis: Portal vein thrombosis Patient reported that her abdominal pain is still the same. She is only able to tolerate liquids. Her INR is therapeutic. Objective - Vital Signs Vital signs: Vital Signs Temp 97.6 F 06/29/20 04:17 Pulse 60 06/29/20 04:17 Resp 16 06/29/20 04:17 BP 114/69 06/29/20 04:17 Pulse Ox 97 06/29/20 04:17 Intake & Output 06/28/20 06/29/20 06/29/20 18:59 06:59 18:59 Intake Total 450 80 Balance 450 80 Intake: IV 80 ns@20 80 Intake, IV Titration 100 Amount metroNIDAZOLE-NS PMX 500 100 mg In Saline 1 100ml.bag @ 100 mls/hr IVPB Q8HR [facility] Rx#:[id number] Oral 350 Other: Voiding Method Toilet # Voids 1 1 - Exam General: The patient is awake and alert, in no distress Eye: there is normal conjunctiva bilaterally. Neck: The neck is supple, there is no JVD. Cardiovascular: Normal S1-S2, no S3-S4, no murmurs. Respiratory: Lungs clear to auscultation bilaterally Gastrointestinal: Abdomen is soft, there is severe tenderness to light palpation throughout the abdomen Musculoskeletal: There is no pedal edema. Neurological:. Speech is normal. Skin: Skin is warm and dry - Labs CBC & Chem 7: 06/29/20 06:18 06/27/20 03:13 Labs: Abnormal Lab Results - Last 24 Hours (Table) 06/29/20 06/29/20 Range/Units 06:18 06:18 Neutrophils # 1.2 L (1.3-7.7) k/uL PT 26.3 H (9.9-11.9) sec INR 2.55 H (0.90-1.11) Assessment and Plan Assessment: This is a 45-year-old female with no known past medical history that presented to the emergency room with worsening abdominal pain, patient was evaluated in the ER and currently admitted to the hospital for further management of her medical problems noted below. 1. Portal vein thrombosis with occlusive thrombus in the posterior branch of the right portal vein: Currently on anticoagulation with Coumadin. INR therapeutic. We will continue to monitor. 2. Severe abdominal pain, exact etiology unclear. Computed tomography scan of the abdomen and pelvis with no acute findings. Abdominal ultrasound showed some gallbladder sludge. General surgery following closely. Been attributed to portal vein thrombosis. We will continue pain management. 3. Diffuse fatty liver disease 4. Obesity, counseled regarding lifestyle modification and exercise Today, I reviewed her medication list and lab work results. COVID-19 test negative. Patient needs follow-up with hematology outpatient. Discontinue Lovenox as INR is therapeutic Advance diet as tolerated Patient appeared very anxious and this partially worsening her symptoms. We'll do a trial of Bentyl as IBS is in the differential diagnosis Continue current management. Anticipate discharge home within the next day or 2 when her symptoms improved
[2020-06-29] MEDS ORDERED: DICYCLOMINE 10 MG CAP PO SCH (09:45)
[2020-06-29 09:57] LABS: African American GFR (CKD) 102.5 (60.0-200.0); Blood Urea Nitrogen <5.0 mg/dL (9.0-27.0); Calcium 8.8 mg/dL (8.7-10.3); Carbon Dioxide 27.1 mmol/L (21.6-31.8); Chloride 109 mmol/L (96-109); Glucose 91 mg/dL (70-110); Non-African American GFR(CKD) 88.4 (60.0-200.0); Potassium 4.4 mmol/L (3.5-5.5); Sodium 142 mmol/L (135-145)
[2020-06-29 11:43] VITALS: BP 121/79; PULSE 56; TEMP 97.7
[2020-06-29 12:41] VITALS: BMI 34.8
--- NOTE | 2020-06-29 13:57 | P.DS ---
Providers Date of admission: 06/27/20 14:59 Expected date of discharge: 06/29/20 Attending physician: Bereket Lewis Consults: 06/26/20 12:52 Consult Physician Routine Consulting Provider: Mila Steel Consult Reason/Comments: Possible portal vein thrombus Do you want consulting provider notified?: Yes 06/26/20 13:13 Consult Physician Routine Consulting Provider: Bereket Lewis Consult Reason/Comments: Medical management Do you want consulting provider notified?: Yes 06/27/20 10:29 Consult Physician Routine Consulting Provider: Laz Nguyen Consult Reason/Comments: abdominal pain Do you want consulting provider notified?: Already Contacted Primary care physician: Stated None Hospital Course: This is a 45-year-old female with no known past medical history that presented to the emergency room with worsening abdominal pain, patient was evaluated in the ER and currently admitted to the hospital for further management of her medical problems noted below. 1. Portal vein thrombosis with occlusive thrombus in the posterior branch of the right portal vein: Currently on anticoagulation with Coumadin. INR 2.5 2. Severe abdominal pain, exact etiology unclear. Computed tomography scan of the abdomen and pelvis with no acute findings. Abdominal ultrasound showed some gallbladder sludge. Patient was seen and evaluated by general surgery 3. Diffuse fatty liver disease 4. Obesity, counseled regarding lifestyle modification and exercise Patient called her nurse and said that she was pain-free after describing severe pain this morning. She was also able to tolerate regular diet. She was requesting to be discharged home. She was advised to continue Coumadin 2.5 mg tonight and 5 mg daily afterwards. Advised to [facility] within the next 3 days for INR check Follow-up with hematology outpatient Strongly encouraged to pursue early cancer screening with mammogram and colonoscopy given her new VTE diagnoses to rule out underlying malignancy Plan of care discussed with her and her Patient will be discharged home in a stable condition. For further details about this hospitalization please refer to the electronic chart. Time spent on discharge > 30 minutes including counseling and coordination of Patient Condition at Discharge: Fair Plan - Discharge Summary New Discharge Prescriptions: New Warfarin [Coumadin] 5 mg PO DAILY #30 tab Discharge Medication List Warfarin [Coumadin] 5 mg PO DAILY #30 tab 06/27/20 [Rx] Follow up Appointment(s)/Referral(s): None,Stated [Primary Care Provider] - 1-2 days [facility] Valentine matos [NON-STAFF] - 3 Days Patient Instructions/Handouts: Warfarin (By mouth), Enoxaparin (By injection) Discharge Disposition: HOME SELF-CARE
[2020-06-29] MEDS ORDERED: WARFARIN 2.5 MG TAB PO ONE (18:00)
--- NOTE | 2020-06-29 18:13 | P.PN ---
Subjective Progress Note Date: 06/29/20 CHIEF COMPLAINT: Portal venous thrombosis and abdominal pain HISTORY OF PRESENT ILLNESS: The patient is a 45-year-old female who presented with abdominal pain of the lower abdomen. She reports abdominal pain has been ongoing beyond 1 week which is at least 3 weeks. She reports decrease use of pain medications. She is no longer taking Dilaudid. She declined Tylenol this morning. She is eager to go home. Her INR is therapeutic over 2.0. Her antibiotic has been discontinued. ROS: No fevers or chills. No new chest pain. No productive sputum PHYSICAL EXAM: VITAL SIGNS: Reviewed CONSTITUTIONAL: Well developed and in no acute distress. EYES: Conjuctivae without sclera icterus. Extraocular movements grossly intact. HEAD, EARS, NOSE, THROAT: Moist buccal mucosa. Head is atraumatic, normocephalic. Hears conversational speech. No nasal drainage. NECK: Supple. No thyroidomegaly. RESPIRATORY: Non-labored respirations and equal bilateral excursions. CARDIOVASCULAR: Palpable 2+ radial pulses. ABDOMEN: No peritonitis. Tenderness bilateral lower abdomen stable. MUSCULOSKELETAL: No gross deformity of the lower extremities noted. No clubbing. No cyanosis. SKIN: Good skin turgor. Well perfused. NEUROLOGIC: Cranial nerves II through XII grossly intact. No focal or laterali zing signs. PSYCH: Appropriate affect. Alert and oriented to person, place and time. CLINICAL LABS: WBC 4.5. INR 2.55. ASSESSMENT: 1. Portal vein thrombosis 2. Left ovarian cyst 3. Generalized abdominal pain PLAN: 1. Patient reports that her abdominal pain is stable. 2. She reports lacking health insurance. She also reports her father confirmed his personal experience of DVTs hence a familial/genetic predisposition for venous thrombosis. 3. At this time, continue with Coumadin. Lovenox at this time may be deferred as her INR is in therapeutic range. 4. Recommend follow-up as outpatient to monitor abdominal pain. 5. Will need outpatient follow-up for abdominal pain including workup for hereditary and genetic predisposition for venous thrombosis following insurance coverage Objective - Vital Signs Vital signs: Vital Signs Temp 97.7 F 06/29/20 11:11 Pulse 56 L 06/29/20 11:11 Resp 16 06/29/20 11:11 BP 121/79 06/29/20 11:11 Pulse Ox 96 06/29/20 11:11 Intake & Output 06/28/20 06/29/20 06/29/20 18:59 06:59 18:59 Intake Total 450 80 Balance 450 80 Weight 103.873 kg Intake: IV 80 ns@20 80 Intake, IV Titration 100 Amount metroNIDAZOLE-NS PMX 500 100 mg In Saline 1 100ml.bag @ 100 mls/hr IVPB Q8HR [facility] Rx#:[id number] Oral 350 Other: Voiding Method Toilet # Voids 1 1 - Labs CBC & Chem 7: 06/29/20 06:18 06/29/20 06:18 Labs: Abnormal Lab Results - Last 24 Hours (Table) 06/29/20 06/29/20 06/29/20 Range/Units 06:18 06:18 06:18 Neutrophils # 1.2 L (1.3-7.7) k/uL PT 26.3 H (9.9-11.9) sec INR 2.55 H (0.90-1.11) BUN <5.0 L (9.0-27.0) mg/dL Assessment and Plan (1) Portal vein thrombosis Status: Acute Code(s): I81 - PORTAL VEIN THROMBOSIS SNOMED Code(s): 29273447 (2) Morbid obesity due to excess calories Status: Acute Code(s): E66.01 - MORBID (SEVERE) OBESITY DUE TO EXCESS CALORIES SNOMED Code(s): 214171846 (3) Cholelithiasis Status: Acute Code(s): K80.20 - CALCULUS OF GALLBLADDER W/O CHOLECYSTITIS W/O OBSTRUCTION SNOMED Code(s): 658804791
== END 2020-06-29 14:30 | disposition home or self-care (01) | DRG 391 ==
LOC: EC 16:23 → 1SOBS 21:40 → OBSVTOIN 06-27 14:59 → 6NMEDSUR 06-28 15:30
PROVIDERS: ADMIT Internal Medicine; ATTEND Internal Medicine
DX: R10.84 Generalized abdominal pain (principal); I81 Portal vein thrombosis; R16.2 Hepatomegaly with splenomegaly, not elsewhere classified; K76.0 Fatty (change of) liver, not elsewhere classified; E66.01 Morbid (severe) obesity due to excess calories; K76.9 Liver disease, unspecified; G47.00 Insomnia, unspecified; K82.8 Other specified diseases of gallbladder; N83.202 Unspecified ovarian cyst, left side; Z20.828 Contact with and (suspected) exposure to other viral communicable diseases; R05 Cough; R06.02 Shortness of breath; R43.9 Unspecified disturbances of smell and taste; Z98.51 Tubal ligation status; Z68.34 Body mass index [BMI] 34.0-34.9, adult; Z71.3 Dietary counseling and surveillance
CPT/HCPCS: 36415; 71046; 74177; 76705; 80048; 80053; 81001; 81025; 82150; 82550; 83605; 83615; 83690; 83735; 83880; 84484; 85025; 85379; 85610; 85730; 86140; 93005; 93976; 96374; 96375; 96376; 99285

== ENCOUNTER → 2020-08-25 | Outpatient (CLI) | payer OTHER ==
--- NOTE | 2020-08-25 08:21 | US ---
EXAMINATION TYPE: US abdomen complete DATE OF EXAM: 08/25/2020 COMPARISON: CT June 26, 2020 CLINICAL HISTORY: R53.83 K76.0 I81 K86.9. Portal Vein thrombosis, right posterior portal vein thrombo sis per CT here. Patient taking Coumadin. EXAM MEASUREMENTS: Liver Length: 16.2 cm Gallbladder Wall: 0.2 cm CBD: 0.2 cm Spleen: 12.7 cm Right Kidney: 9.2 x 5.0 x 3.9 cm Left Kidney: 10.1 x 6.1 x 5.0 cm Pancreas: hyperechoic; prominent Portal/Splenic Vein at level of pancreas Liver: heterogenous left lobe; Portal Vein flow is hepatopetal; Left and Right Portal Veins are suazo nt as visualized; Hepatic Veins are patent and Flow is to IVC. Portal Vein Size: prominent at 14.9mm (greater than normal 13.0mm). Gallbladder: wnl Evidence for sonographic Mcnamara's sign: no CBD: wnl Spleen: wnl Right Kidney: No hydronephrosis or masses seen Left Kidney: No hydronephrosis or masses seen Upper IVC: wnl Abd Aorta: wnl The intrahepatic portion of the IVC and visualized abdominal aorta are within normal limits. There is no evidence of cholelithiasis. Liver remains heterogeneous. Satisfactory blood flow in main sadiq l vein towards the liver. Satisfactory blood flow in left and right portal veins. Satisfactory blood flow into hepatic veins draining into IVC. Common bile duct is unremarkable. The visualized portions of the pancreas are slightly heterogeneous. The spleen is upper limits of normal in size. Kidneys are symmetric and free of hydronephrosis. No renal lesions are seen on images saved. IMPRESSION: Heterogeneous hyperechoic appearance of liver could reflect products of diffuse fatty inf iltration and/or underlying hepatocellular disease. Satisfactory blood flow to liver and main portal vein. No thrombus identified currently.
== END | disposition home or self-care (01) ==
LOC: RADUSWWP 07:02
PROVIDERS: ATTEND Family Medicine
DX: R93.2 Abnormal findings on diagnostic imaging of liver and biliary tract (principal); K76.0 Fatty (change of) liver, not elsewhere classified; R53.83 Other fatigue; I81 Portal vein thrombosis; K86.9 Disease of pancreas, unspecified
CPT/HCPCS: 76700

== ENCOUNTER 2020-11-19 08:41 | Day surgery (SDC) | payer OTHER ==
[2020-11-14 09:03] VITALS: BMI 33.4
[~2020-11-19 08:41] MED LIST: LACTATED RINGERS 1,000 ML IV SCH; LIDOCAINE 1% (10MG/ML) FOR IV START INTRADERMA PRN
[2020-11-19 09:08] VITALS: RESP 18; TEMP 97.2
[2020-11-19] MEDS ORDERED: LIDOCAINE 1% INJ 10MG/ML (20 ML MDV) ONE (10:00)
[2020-11-19] MEDS ORDERED: PROPOFOL 10 MG/ML 20 ML VIAL IV ONE (10:00)
--- NOTE | 2020-11-19 10:19 | P.PCN ---
Date of Procedure: 11/19/20 Procedure(s) Performed: Brief history: Patient is a pleasant 45-year-old white female scheduled for an elective upper endoscopy as well as colonoscopy as a part of evaluation of portal vein thrombosis diagnosed 2 months ago for which she started on antibiotic coagulation. She is scheduled for an upper endoscopy as well as colonoscopy to rule out Malignancy. Procedure performed: Esophagogastroduodenoscopy Colonoscopy and snare polypectomy Preoperative diagnosis: History of portal vein thrombosis diagnosed 2 months Anesthesia: MAC Procedure: After informed consent was obtained from the patient was brought into the endoscopy unit and IV sedation was administered by anesthesia under continuous monitoring. Initially upper endoscopy was done. The Olympus GF 160 video endoscope was inserted inserted into the mouth and esophagus intubated without any difficulty and was gradually advanced into the stomach and duodenum and carefully examined. The bulb and second part of the duodenum appeared normal. The scope was then withdrawn into the stomach adequately insufflated with air and upon careful examination the antrum and body, cardia and fundus appeared normal. The scope was then withdrawn into the esophagus. The GE junction was located at 40 cm to the incisors. It appeared regular with no erythema erosions or ulcerations. Rest of the esophagus appeared normal. Patient tolerated the procedure well. At this time the patient continued to remain sedation. Initial digital rectal examination was normal. Olympus CF 160 video colonoscope was then inserted into the rectum and gradually advanced to the cecum without any difficulty. Careful examination was performed as the scope was gradually being withdrawn. The prep was excellent. The cecum there was a 3 mm and 5 mm polyps removed by snare polypectomy. Rest of the the cecum, ascending colon, transverse colon, descending colon, sigmoid colon and rectum appeared normal. Retroflexion was performed in the rectum and no lesions were noted. Patient tolerated the procedure well. Impression: 1. Upper endoscopy was essentially within normal limits 2. Colonoscopy revealed 3 mm and 5 limited cecal polyp status post polypectomy Recommendations: Findings of this examination were discussed with the patient as well a her family. She was advised to follow with the biopsy results. If the biopsy shows an adenoma she can have a repeat colonoscopy in 5 years
[2020-11-19 10:40] VITALS: BP 115/74; PULSE 75
== END 2020-11-19 11:34 | disposition home or self-care (01) ==
LOC: ORWHC2ENDO 08:41
PROVIDERS: ATTEND Internal Medicine Gastroenterology
DX: I81 Portal vein thrombosis (principal); K63.5 Polyp of colon; Z79.01 Long term (current) use of anticoagulants; Z98.51 Tubal ligation status; Z90.89 Acquired absence of other organs
CPT/HCPCS: 81025; 88305; 45385; 43235; J2001; J2704

== ENCOUNTER → 2020-12-31 | Outpatient (CLI) | payer OTHER ==
[2021-01-01 04:29] LABS: African American GFR (CKD) 88.9 (60.0-200.0); Albumin 4.2 g/dL (3.80-4.90); Albumin/Globulin Ratio 2.21 (1.60-3.17); Anion Gap 9.1 mmol/L (4.00-12.00); BUN/Creat Ratio 16.67 Ratio (12.00-20.00); Calcium 9.2 mg/dL (8.7-10.3); Carbon Dioxide 26.9 mmol/L (21.6-31.8); Globulin 1.9 g/dL (1.6-3.3); Non-African American GFR(CKD) 76.7 (60.0-200.0); Potassium 4.3 mmol/L (3.5-5.5); Total Bilirubin 0.3 mg/dL (0.2-1.2); Total Protein 6.1 g/dL (6.2-8.2)
[2021-01-01 05:05] LABS: Hepatitis B Surface Antigen Non-Reactive (Non-Reactive); Hepatitis C IgG Antibody Non-Reactive (Non-Reactive)
== END | disposition home or self-care (01) ==
LOC: LABWHC1 15:59
PROVIDERS: ATTEND Internal Medicine Gastroenterology
DX: K76.0 Fatty (change of) liver, not elsewhere classified (principal)
CPT/HCPCS: 36415; 80053; 86803; 87340

== ENCOUNTER 2024-03-16 05:45 | Emergency (ER) | payer OTHER ==
[2024-03-16 05:58] VITALS: RESP 17; TEMP 97.6
--- NOTE | 2024-03-16 06:21 | ED ---
Abdominal Pain HPI - General Chief Complaint: Abdominal Pain Stated Complaint: ABD Pain, Nausea Time Seen by Provider: 03/16/24 05:59 Source: patient, RN notes reviewed Mode of arrival: ambulatory Limitations: no limitations - History of Present Illness Initial Comments: This is a 48-year-old female who presents to the emergency department for abdominal pain. States that it started 3 to 4 days ago. It starts in the left lower quadrant and radiates to the center of her abdomen. Also reports pain in the bilateral upper quadrants of her abdomen. States that she feels very "full" and bloated. She is nauseous but has not had any episodes of emesis. States that she has irregular bowel movements regardless and last had a bowel movement 4 days ago, however states that this is normal for her. Also denies any fevers or chills. Denies any history of similar pains in the past. She tried taking Pepto-Bismol without any relief. MD Complaint: abdominal pain - Related Data Previous Rx's Medication Instructions Recorded HYDROcodone/APAP 5-325MG [Franklin 1 tab PO Q6HR PRN 3 Days #12 tab 03/16/24 5-325] Ketorolac [Toradol] 10 mg PO Q6HR PRN #15 tab 03/16/24 Metoclopramide [Reglan] 10 mg PO Q6H PRN #30 tab 03/16/24 Ondansetron Odt [Zofran Odt] 4 mg PO Q8HR PRN #30 tab 03/16/24 Allergies Allergy/AdvReac Type Severity Reaction Status Date / Time No Known Allergies Allergy Verified 03/16/24 09:04 Review of Systems ROS Statement: Those systems with pertinent positive or pertinent negative responses have been documented in the HPI. ROS Other: All systems not noted in ROS Statement are negative. Past Medical History Past Medical History: No Reported History Additional Past Medical History / Comment(s): hx migraines, hx "blood clot in liver", "sludge in gallbladder", History of Any Multi-Drug Resistant Organisms: None Reported Past Surgical History: Adenoidectomy, Tonsillectomy, Tubal Ligation, Uterine Ablation Past Anesthesia/Blood Transfusion Reactions: Motion Sickness Past Psychological History: No Psychological Hx Reported Smoking Status: Current some day smoker Past Alcohol Use History: Occasional Past Drug Use History: None Reported - Past Family History Father Additional Family Medical History / Comment(s): "blood clot problems-not sure where" General Exam Limitations: no limitations General appearance: alert, in no apparent distress Head exam: Present: atraumatic, normocephalic, normal inspection Respiratory exam: Present: normal lung sounds bilaterally. Absent: respiratory distress, wheezes, rales, rhonchi, stridor Cardiovascular Exam: Present: regular rate, normal rhythm, normal heart sounds. Absent: systolic murmur, diastolic murmur, rubs, gallop, clicks GI/Abdominal exam: Present: soft, tenderness (LLQ and upper abdomen), normal bowel sounds. Absent: distended Neurological exam: Present: alert, oriented X3, CN II-XII intact Psychiatric exam: Present: normal affect, normal mood Skin exam: Present: warm, dry, intact, normal color. Absent: rash Course Vital Signs 03/16/24 03/16/24 03/16/24 05:55 07:00 10:34 Temperature 97.6 F Pulse Rate 84 65 Respiratory 17 17 Rate Blood Pressure 98/70 119/62 110/65 O2 Sat by Pulse 99 99 Oximetry Medical Decision Making - Medical Decision Making This is a 48 year old female who presents to the emergency department for abdominal pain. Was pt. sent in by a medical professional or institution? @ -No Did you speak to anyone other than the patient for history? @ -No Did you review nursing and triage notes? @ -Yes, and I agree, it is accurate with regards to the patient's symptoms. Were old charts reviewed? @ -No Differential Diagnosis? @ -Differential Abdominal Pain Women: Appendicitis, Cholecystitis, diverticulosis, ischemic bowel, pancreatitis, hepatitis, UTI, gastroenteritis, AAA, incarcerated hernia, bowel obstruction, constipation, inflammatory bowel, hepatitis, peptic ulcer disease, splenic infarction, perforated viscus, vulvitis, ovarian torsion, PID, kidney stone, placenta abruption, this is not meant to be an all-inclusive list EKG interpreted by me (3pts min.)? @ -EKG interpreted by me demonstrating the following: Sinus rhythm. Ve ntricular rate 77 bpm, MA interval 161 ms, QRS duration 90 ms, QTc 389 ms. X-rays interpreted by me (1pt min.)? @ -Not obtained CT interpreted by me (1pt min.)? @ -CT scan of the abdomen and pelvis obtained. My interpretation identifies no evidence of bowel wall thickening or free air. U/S interpreted by me (1pt. min.)? @ -Gallbladder ultrasound obtained. My interpretation identifies no evidence of cholelithiasis. Transvaginal ultrasound obtained. My interpretation identifies a cystic area near the left cornua. What testing was considered but not performed? (CT, X-rays, U/S, labs)? Why? @ -None What meds were considered but not given? Why? @ -None Did you discuss the management of the patient with other professionals? @ -No Did you reconcile home meds? @ -No Was smoking cessation discussed for >3mins.? @ -No Was critical care preformed (if so, how long)? @ -No Were there social determinants of health that impacted care today? How? ([place] elessness, low income, unemployed, alcoholism, drug addiction, transportation, low edu. Level, literacy, decrease access to med. care, correction, rehab)? @ -No Was there de-escalation of care discussed even if they declined? (Discuss DNR or withdrawal of care, Hospice)? @ -No What co-morbidities impacted this encounter? (DM, HTN, Smoking, COPD, CAD, C ancer, CVA, Hep., AIDS, mental health diagnosis, sleep apnea, morbid obesity)? @ -None Was patient admitted / discharged? @ -Discharged. Lab work unremarkable. Urinalysis negative for signs of infection. CT scan of the abdomen and pelvis demonstrates moderate circumferential bladder wall thickening. She also has a very heterogeneous myometrium and a possible 1.3 cm cystic area at the left fundal endometrium. They advised consideration of a diffuse small fibroid change or adenomyosis. Hepatomegaly is noted as well. Given these findings, transvaginal ultrasound was obtained. Gallbladder ultrasound obtained as well due to the upper abdominal pain. Gallbladder ultrasound revealed no acute process. Transvaginal ultrasound demonstrates a 1.9 cm cystic area at the left cornua suggestive of a focal hematometra. Findings reviewed with the patient. Symptoms improved in the emergency department. Advised she contact her LAP CUTTER for follow-up appoi ntment regarding the hematometra. Prescription for Toradol, Zofran, and Reglan provided with dosing instructions reviewed. Patient discharged home in stable condition. Undiagnosed new problem with uncertain prognosis? @ -None Drug Therapy requiring intensive monitoring for toxicity (Heparin, Nitro, Insulin, Cardizem)? @ -None Were any procedures done? @ -None Diagnosis/symptom? @ -Abdominal pain, hematometra Acute, or Chronic, or Acute on Chronic? @ -Acute Uncomplicated (without systemic symptoms) or Complicated (systemic symptoms)? @ -Uncomplicated Side effects of treatment? @ -None Exacerbation, Progression, or Severe Exacerbation] @ -Not applicable Poses a threat to life or bodily function? @ -Unlikely Return precautions reviewed in depth, the patient is instructed to return to the emergency department with any new, worsening, or concerning symptoms. Patient verbalized understanding. This case was discussed in detail with the attending ED physician, Dr. Humphreys. Presentation, findings, and treatment plan discussed in detail as well. - Lab Data Result diagrams: 03/16/24 06:32 03/16/24 06:32 Lab Results 03/16/24 03/16/24 03/16/24 Range/Units 06:10 06:32 06:32 WBC 5.7 (3.8-10.6) k/uL RBC 4.64 (3.80-5.40) m/uL Hgb 14.1 (11.4-16.0) gm/dL Hct 43.2 (34.0-46.0) % MCV 93.2 (80.0-100.0) fL MCH 30.5 (25.0-35.0) pg MCHC 32.7 (31.0-37.0) g/dL RDW 13.1 (11.5-15.5) % Plt Count 190 (150-450) k/uL MPV 10.6 Neutrophils % 63 % Lymphocytes % 27 % Monocytes % 5 % Eosinophils % 3 % Basophils % 1 % Neutrophils # 3.6 (1.3-7.7) k/uL Lymphocytes # 1.5 (1.0-4.8) k/uL Monocytes # 0.3 (0-1.0) k/uL Eosinophils # 0.2 (0-0.7) k/uL Basophils # 0.1 (0-0.2) k/uL Sodium 140 (137-145) mmol/L Potassium 4.2 (3.5-5.1) mmol/L Chloride 108 H (98-107) mmol/L Carbon Dioxide 28 (22-30) mmol/L Anion Gap 4 mmol/L BUN 10 (7-17) mg/dL Creatinine 0.81 (0.52-1.04) mg/dL Est GFR (CKD-EPI)AfAm >90 (>60 ml/min/1.73 sqM) Est GFR (CKD-EPI)NonAf 86 (>60 ml/min/1.73 sqM) Glucose 83 (74-99) mg/dL Plasma Lactic Acid Roel (0.7-2.0) mmol/L Calcium 9.5 (8.4-10.2) mg/dL Total Bilirubin 0.7 (0.2-1.3) mg/dL AST 23 (14-36) U/L ALT 13 (4-34) U/L Alkaline Phosphatase 73 (38-126) U/L Total Protein 6.7 (6.3-8.2) g/dL Albumin 4.1 (3.5-5.0) g/dL Amylase 50 (30-110) U/L Lipase 90 (23-300) U/L Urine Color Colorless Urine Appearance Clear (Clear) Urine pH 6.5 (5.0-8.0) Ur Specific Mccoll 1.044 H (1.001-1.035) Urine Protein Negative (Negative) Urine Glucose (UA) Negative (Negative) Urine Ketones Negative (Negative) Urine Blood Negative (Negative) Urine Nitrite Negative (Negative) Urine Bilirubin Negative (Negative) Urine Urobilinogen <2.0 (<2.0) mg/dL Ur Leukocyte Esterase Moderate H (Negative) Urine RBC <1 (0-5) /hpf Urine WBC 4 (0-5) /hpf Ur Squamous Epith Cells 4 (0-4) /hpf Urine Mucus Rare H (None) /hpf Urine HCG, Qual (Not Detectd) 03/16/24 03/16/24 Range/Units 06:32 Unknown WBC (3.8-10.6) k/uL RBC (3.80-5.40) m/uL Hgb (11.4-16.0) gm/dL Hct (34.0-46.0) % MCV (80.0-100.0) fL MCH (25.0-35.0) pg MCHC (31.0-37.0) g/dL RDW (11.5-15.5) % Plt Count (150-450) k/uL MPV Neutrophils % % Lymphocytes % % Monocytes % % Eosinophils % % Basophils % % Neutrophils # (1.3-7.7) k/uL Lymphocytes # (1.0-4.8) k/uL Monocytes # (0-1.0) k/uL Eosinophils # (0-0.7) k/uL Basophils # (0-0.2) k/uL Sodium (137-145) mmol/L Potassium (3.5-5.1) mmol/L Chloride (98-107) mmol/L Carbon Dioxide (22-30) mmol/L Anion Gap mmol/L BUN (7-17) mg/dL Creatinine (0.52-1.04) mg/dL Est GFR (CKD-EPI)AfAm (>60 ml/min/1.73 sqM) Est GFR (CKD-EPI)NonAf (>60 ml/min/1.73 sqM) Glucose (74-99) mg/dL Plasma Lactic Acid Roel 1.0 (0.7-2.0) mmol/L Calcium (8.4-10.2) mg/dL Total Bilirubin (0.2-1.3) mg/dL AST (14-36) U/L ALT (4-34) U/L Alkaline Phosphatase (38-126) U/L Total Protein (6.3-8.2) g/dL Albumin (3.5-5.0) g/dL Amylase (30-110) U/L Lipase (23-300) U/L Urine Color Urine Appearance (Clear) Urine pH (5.0-8.0) Ur Specific Mccoll (1.001-1.035) Urine Protein (Negative) Urine Glucose (UA) (Negative) Urine Ketones (Negative) Urine Blood (Negative) Urine Nitrite (Negative) Urine Bilirubin (Negative) Urine Urobilinogen (<2.0) mg/dL Ur Leukocyte Esterase (Negative) Urine RBC (0-5) /hpf Urine WBC (0-5) /hpf Ur Squamous Epith Cells (0-4) /hpf Urine Mucus (None) /hpf Urine HCG, Qual Not Detected (Not Detectd) - Radiology Data Radiology results: report reviewed, image reviewed Disposition Clinical Impression: Hematometra, Abdominal pain, Nausea Disposition: HOME SELF-CARE Instructions (If sedation given, give patient instructions): Abdominal Pain (ED) Additional Instructions: Return to the emergency department with any new, worsening, or concerning symptoms. Take the Toradol with Tylenol as needed for pain relief. If you choose to take the Toradol, do not take any other anti-inflammatories such as ibuprofen, take one or the other. Take the Franklin sparingly when your pain is the most severe. You can take the Zofran up to every 8 hours as needed for nausea and vomiting. You can take the Reglan up to every 6 hours as needed for nausea and vomiting. Contact Dr. Valentine's office and let him know that you were seen in the emergency department and found to have a hematometra that needs follow-up. If he cannot see you in a timely manner you can also try contacting the local LAP CUTTER's listed below. Prescriptions: HYDROcodone/APAP 5-325MG [Franklin 5-325] 1 tab PO Q6HR PRN 3 Days #12 tab PRN Reason: Pain Metoclopramide [Reglan] 10 mg PO Q6H PRN #30 tab PRN Reason: Nausea And Vomiting Ketorolac [Toradol] 10 mg PO Q6HR PRN #15 tab PRN Reason: Pain Ondansetron Odt [Zofran Odt] 4 mg PO Q8HR PRN #30 tab PRN Reason: Nausea And Vomiting Is patient prescribed a controlled substance at d/c from ED?: Yes When asked, does pt state using other controlled substances?: No If prescribed controlled substance>3 days was MAPS reviewed?: Prescribed <3 Days Referrals: None,Stated [Primary Care Provider] - 1-2 days Mariangel Robles DO [Doctor of Osteopathic Medicine] - 1-2 days Time of Disposition: 10:28
[2024-03-16] MEDS: SODIUM CHLORIDE 0.9% 1,000 ML IV STA (06:26)
[2024-03-16] MEDS: ONDANSETRON 4 MG/2 ML VIAL IVP STA ×2 (06:26→10:40)
[2024-03-16] MEDS: KETOROLAC 15 MG/ML 1 ML VIAL IVP STA ×2 (06:28→08:44)
[2024-03-16] MEDS: MORPHINE SULFATE 2 MG/ML SYRINGE IVP STA (06:30)
[2024-03-16 06:44] LABS: Basophils # (A) 0.1 k/uL (0-0.2); Basophils % (A) 1 %; Eosinophils # (A) 0.2 k/uL (0-0.7); Eosinophils % (A) 3 %; HCT 43.2 % (34.0-46.0); HGB 14.1 gm/dL (11.4-16.0); Lymphocytes # (A) 1.5 k/uL (1.0-4.8); Lymphocytes % (A) 27 %; MCH 30.5 pg (25.0-35.0); MCHC 32.7 g/dL (31.0-37.0); MCV 93.2 fL (80.0-100.0); Mean Platelet Volume 10.6; Monocytes # (A) 0.3 k/uL (0-1.0); Monocytes % (A) 5 %; Neutrophils # (A) 3.6 k/uL (1.3-7.7); Neutrophils % (A) 63 %; Platelet Count 190 k/uL (150-450); RBC 4.64 m/uL (3.80-5.40); RDW 13.1 % (11.5-15.5); WBC 5.7 k/uL (3.8-10.6)
[2024-03-16 07:02] LABS: ALT 13 U/L (4-34); AST 23 U/L (14-36); African American GFR (CKD) >90 (>60 ml/min/1.73 sqM); Albumin 4.1 g/dL (3.5-5.0); Alkaline Phosphatase 73 U/L (38-126); Amylase 50 U/L (30-110); Anion Gap 4 mmol/L; Blood Urea Nitrogen 10 mg/dL (7-17); Calcium 9.5 mg/dL (8.4-10.2); Carbon Dioxide 28 mmol/L (22-30); Chloride 108 mmol/L (98-107); Glucose 83 mg/dL (74-99); Lipase 90 U/L (23-300); Non-African American GFR(CKD) 86 (>60 ml/min/1.73 sqM); Potassium 4.2 mmol/L (3.5-5.1); Sodium 140 mmol/L (137-145); Total Bilirubin 0.7 mg/dL (0.2-1.3); Total Protein 6.7 g/dL (6.3-8.2)
--- NOTE | 2024-03-16 08:10 | CT ---
EXAMINATION TYPE: CT abdomen pelvis w con DATE OF EXAM: 03/16/2024 COMPARISON: 06/26/2020 HISTORY: 48-year-old female LLQ pain and bloating TECHNIQUE: Contiguous axial scanning of the abdomen and pelvis following administration of 100 ml Iso francisco javier 300 IV contrast. Delayed images through the kidneys and coronal/sagittal reconstructions perform ed. CT DLP: 1153.2 mGycm Automated exposure control for dose reduction was used. FINDINGS: The heart is normal size without pericardial effusion. Hazy dependent atelectasis in the lower lungs without pleural effusion. Liver enlarged at 20.7 cm. No focal lesion seen. No biliary ductal dilatation. Portal venous system i s patent. Gallbladder, adrenal glands, left kidney, spleen, and pancreas within normal limits. Tiny 8 mm cortic al cyst posterior right kidney. No dilated small bowel, free fluid, or free air. No mesenteric or retroperitoneal lymphadenopathy. Normal appendix. Scattered mild stool. No pericolonic inflammatory change. Moderate circumferential bladder wall thickening. Uterus anteverted with very heterogeneous myometriu m. Possible 1.3 cm cystic area along the left fundal endometrium. Both ovaries are visualized. No abn ormal fluid collection in the pelvis or pelvic lymphadenopathy. Bones: Mild degenerative changes mid to lower lumbar spine. IMPRESSION: 1. MODERATE CIRCUMFERENTIAL BLADDER WALL THICKENING. CORRELATE TO EXCLUDE CYSTITIS. 2. VERY HETEROGENEOUS MYOMETRIUM AND POSSIBLE 1.3 CM CYSTIC AREA AT THE LEFT FUNDAL ENDOMETRIUM. CONS IDER DIFFUSE SMALL FIBROID CHANGE OR ADENOMYOSIS. FEMALE PELVIC MRI CAN FURTHER EVALUATE IF CLINICALL Y INDICATED. 3. HEPATOMEGALY AT 20.7 CM.
[2024-03-16 08:43] LABS: Appearance,Urine Clear (Clear); Bilirubin,Urine Negative (Negative); Blood,Urine Negative (Negative); Color,Urine Colorless; Glucose,Urine (UA) Negative (Negative); Ketones,Urine Negative (Negative); Leukocyte Esterase,Urine Moderate (Negative); Mucus,Urine Rare /hpf; Nitrite,Urine Negative (Negative); PH, Urine 6.5 (5.0-8.0); Protein,Urine Negative (Negative); RBC,Urine <1 /hpf (0-5); Specific Gravity,Urine 1.044 (1.001-1.035); Squamous Epithelial Cell,Urine 4 /hpf (0-4); Urobilinogen,Urine <2.0 mg/dL (<2.0); WBC,Urine 4 /hpf (0-5)
[2024-03-16] MEDS: METOCLOPRAMIDE 5 MG/ML 2 ML VIAL IVP STA (08:43)
[2024-03-16] MEDS: DICYCLOMINE 10 MG/ML 2 ML AMP IM STA (08:43)
[2024-03-16] MEDS: HYDROmorphone 1 MG/ML 1 ML SYRINGE IVP STA (08:43)
--- NOTE | 2024-03-16 09:32 | US ---
EXAMINATION TYPE: US transvaginal plus Dopplers DATE OF EXAM: 03/16/2024 COMPARISON: 10/29/22, CT: today CLINICAL INDICATION: Female, 48 years old with history of Left sided pelvic pain, abnormal CT; pelvic pain TECHNIQUE: Transvaginal (TV). Color Doppler and spectral waveform analysis of the ovarian arteries and veins. Date of LMP: over a year ago EXAM MEASUREMENTS: Uterus: 10.1 x 5.8 x 4.5 cm Endometrial Stripe: Not well-defined. A small portion of the fundal endometrium estimated at 8 mm. Right Ovary: 3.1 x 2.1 x 2.1 cm Left Ovary: not seen 1. Uterus: Anteverted cystic area seen measuring 1.7 x 1.3 x 1.0cm 2. Endometrium: Not well-defined in keeping with history of endometrial ablation 3. Right Ovary: cystic area seen measuring 1.9cm towards the left cornua 4. Left Ovary: not seen Spectral, color and waveform doppler imaging shows good arterial and venous flow within the right o vary; there is no evidence for ovarian torsion. 5. Bilateral Adnexa: bowel gas seen 6. Posterior cul-de-sac: wnl IMPRESSION: 1. Additional history of previous endometrial ablation. The presence of a 1.9 cm cystic area at the l eft cornua suggests focal hematometra which may account for the patient's left-sided pain. Clinically correlate. Consider [employer]ING SUPERVISOR referral. 2. Unable to visualize the left ovary. Right ovary unremarkable without evidence for torsion.
--- NOTE | 2024-03-16 10:02 | US ---
EXAMINATION TYPE: US gallbladder DATE OF EXAM: 03/16/2024 COMPARISON: 10/29/22, CT: Today CLINICAL INDICATION: Female, 48 years old with history of Epigastric pain; epigastric pain TECHNIQUE: Multiple sonographic images of the right upper quadrant are obtained. FINDINGS: EXAM MEASUREMENTS: Liver Length: 18.7 cm Gallbladder Wall: 0.17 cm CBD: 0.33 cm Right Kidney: 9.5 x 5.2 x 4.0 cm DRILLING MANAGER NOTES: Pancreas: parts seen appear wnl Liver: heterogeneous and enlarged , no masses dilated ducts or cystic structures. Gallbladder: contracted Evidence for sonographic Mcnamara's sign: No CBD: wnl Right Kidney: dilated renal pelvis IMPRESSION: 1. No evidence for acute process. 2. Heterogenous enlarged liver correlate with serum markers for hepatocellular disease.
[2024-03-16 10:40] VITALS: BP 110/65; PULSE 65
== END 2024-03-16 10:47 | disposition home or self-care (01) ==
LOC: EC 05:45
DX: N85.7 Hematometra (principal); N32.89 Other specified disorders of bladder; N85.8 Other specified noninflammatory disorders of uterus; R16.0 Hepatomegaly, not elsewhere classified; F17.200 Nicotine dependence, unspecified, uncomplicated
CPT/HCPCS: 99285; 96374; 96375 ×4; 96376 ×2; 96361 ×2; 96372; 36415; 93005; 80053; 82150; 83605; 83690; 85025; 81001; 81025; 93976; 76830; 76705; 74177; J0500; J2765; J2405; J2270; J1170; J1885; Q9967

== ENCOUNTER → 2024-06-20 | Outpatient (CLI) | payer OTHER ==
[2024-06-20 16:41] LABS: Basophils # (A) 0.07 X 10*3/uL (0.00-0.10); Eosinophils # (A) 0.28 X 10*3/uL (0.04-0.35); Eosinophils % (A) 4.2 %; HCT 42.1 % (37.2-46.3); HGB 14.3 g/dL (12.0-15.0); Lymphocytes # (A) 2.22 X 10*3/uL (0.90-5.00); Lymphocytes % (A) 32.9 %; MCH 30.7 pg (27.0-32.0); MCV 90.3 FL (80.0-97.0); Mean Platelet Volume 12.8 FL (9.5-12.2); Monocytes # (A) 0.34 X 10*3/uL (0.20-1.00); NRBC Per 100 WBC 0 X 10*3/uL (0.00-0.01); Neutrophils # (A) 3.82 X 10*3/uL (1.80-7.70); Neutrophils % (A) 56.8 %; Platelet Count 210 X 10*3/uL (140-440); RBC 4.66 X 10*6/uL (4.10-5.20); RDW 12.8 % (11.5-14.5); WBC 6.74 X 10*3/uL (4.50-10.00)
[2024-06-20 16:55] LABS: Blood Urea Nitrogen 9.4 mg/dL (9.0-27.0); Carbon Dioxide 26.2 mmol/L (21.6-31.8); Chloride 104 mmol/L (96-109); Glucose 86 mg/dL (70-110); Potassium 4.4 mmol/L (3.5-5.5); Sodium 139 mmol/L (135-145)
== END | disposition home or self-care (01) ==
LOC: LABPAT 10:51
PROVIDERS: ATTEND Obstetrics & Gynecology Obstetrics
DX: Z01.818 Encounter for other preprocedural examination
CPT/HCPCS: 80051; 82565; 82947; 84520; 85025; 86850; 86900; 86901; 87077; 87086; 87186; 93005

== ENCOUNTER 2024-06-28 07:46 | Day surgery (SDC) | payer OTHER ==
[2024-06-21 10:15] VITALS: BMI 32.6
[~2024-06-28 07:46] MED LIST changes: +HYDROmorphone 0.5 MG/0.5 ML SYRINGE IVP PRN; -LACTATED RINGERS 1,000 ML IV SCH; -LIDOCAINE 1% (10MG/ML) FOR IV START INTRADERMA PRN; +fentaNYL (PF) 50 MCG/ML 2 ML AMP IV PRN
[2024-06-28] MEDS: LACTATED RINGERS 1,000 ML IV SCH (08:45)
[2024-06-28] MEDS: IV FLUID CONTINUATION 1,000 ML IV ONE (08:45)
[2024-06-28] MEDS: DEXAMETHASONE SOD PHOSPHATE 4 MG/ML 1 ML VIAL IVP STA (08:46)
[2024-06-28] MEDS: SCOPOLAMINE 1 MG/72 HR PATCH TRANSDERM STA (08:46)
[2024-06-28] MEDS: ONDANSETRON 4 MG/2 ML VIAL IVP STA (08:46)
[2024-06-28] MEDS: MIDAZOLAM 2 MG/2 ML VIAL IV ONE (09:01)
[2024-06-28] MEDS: fentaNYL (PF) 50 MCG/ML 2 ML AMP IVP PRN ×2 (09:01)
--- NOTE | 2024-06-28 09:26 | P.HPOB ---
History of Present Illness H&P Date: 06/28/24 Chief Complaint: Hematometra, failed endometrial ablation, pelvic pain This is a 49-year-old female that presents with complaints of increasing pelvic pain increasing in nature since her endometrial ablation was done in January 2023. Ultrasound was performed revealing a slightly enlarged uterus at 10 cm, 1 cm fluid collection in the left cornual region of the endometrium, normal ovaries bilaterally with follicles. 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 September 1997, vaginal delivery September 1999 vaginal delivery Miscarriage Menses are noted to be absent since NovaSure was completed in January 2023. She does experience occasional spotting. Pelvic pain has gotten increased since January of this year. Review of Systems Constitutional: Denies chills, Denies fatigue, Denies fever Ears, nose, mouth and throat: Denies headache Cardiovascular: Denies leg edema Respiratory: Denies dyspnea Gastrointestinal: Denies nausea, Denies vomiting Genitourinary: Reports as per HPI, Reports dysmenorrhea, Denies Past Medical History Past Medical History: Musculoskeletal Disorder Additional Past Medical History / Comment(s): Hx migraines, hx "blood clot in liver", "sludge in gallbladder", Scoliosis. History of Any Multi-Drug Resistant Organisms: None Reported Past Surgical History: Adenoidectomy, Tonsillectomy, Tubal Ligation, Uterine Ablation Past Anesthesia/Blood Transfusion Reactions: Motion Sickness Smoking Status: Current some day smoker, Light tobacco smoker - Past Family History Father Additional Family Medical History / Comment(s): "Blood clot problems-not sure where." Medications and Allergies Home Medications Medication Instructions Recorded Confirmed Type Nitrofurantoin Monohyd/M-Cryst 100 mg PO Q12HR 06/28/24 06/28/24 History [Macrobid] Allergies Allergy/AdvReac Type Severity Reaction Status Date / Time No Known Allergies Allergy Verified 06/28/24 08:15 Exam Osteopathic Statement: *. No significant issues noted on an osteopathic structural exam other than those noted in the History and Physical/Consult. Vital Signs Temp Pulse Resp BP Pulse Ox 06/28/24 08:24 97.9 F 80 18 136/66 99 Intake and Output 06/27/24 06/28/24 06/28/24 22:59 06:59 14:59 Other: Weight 100 kg Physical exam is performed on this date in general this is a well-nourished well-developed female in no acute distress, breathing is nonlabored, heart has a regular rate and rhythm, abdomen is soft and nontender, on genitourinary exam external genitalia is noted be normal for age, vaginal mucosa is noted to be pink and well-rugated, cervix is without lesion, uterus is mobile. Assessment and Plan (1) Pelvic pain Current Visit: Yes Status: Acute Code(s): R10.2 - PELVIC AND PERINEAL PAIN SNOMED Code(s): 21968607 (2) Dysmenorrhea Current Visit: Yes Status: Acute Code(s): N94.6 - DYSMENORRHEA, UNSPECIFIED SNOMED Code(s): 463873380 (3) Hematometra Narrative/Plan: Failed endometrial ablation Current Visit: Yes Status: Acute Code(s): N85.7 - HEMATOMETRA SNOMED Code(s): 51797404 Plan: 49-year-old female with failed endometrial ablation noted hematometra increasing pelvic pain over the last 2 to 3 months. Patient is requesting definitive treatment giving pelvic pain. Patient is counseled on robotic assisted vaginal hysterectomy with bilateral salpingectomy, diagnostic cystoscopy. Risks are reviewed including but not limited to infection, bleeding, damage to bladder, bowel, ureteric injury. Patient states understanding and wishes to proceed. All questions were answered to patient's satisfaction. Will proceed with roboti c assisted vaginal hysterectomy, bilateral salpingectomy, diagnostic cystoscopy.
[2024-06-28 09:32] VITALS: RESP 16
[2024-06-28] MEDS: ACETAMINOPHEN IV (For NPO) 1,000 MG in EMPTY BAG 1 BAG IVPB PRN (09:34)
[2024-06-28] MEDS ORDERED: HYDROmorphone (PF) 1 MG/ML ONE (09:46)
[2024-06-28] MEDS ORDERED: MIDAZOLAM 2 MG/2 ML VIAL ONE (09:46)
[2024-06-28] MEDS ORDERED: LIDOCAINE 1% INJ 10MG/ML (20 ML MDV) ONE (09:46)
[2024-06-28] MEDS ORDERED: SUCCINYLCHOLINE CHLORIDE 200 MG/10 ML VIAL IV ONE (09:46)
[2024-06-28] MEDS ORDERED: ROCURONIUM 10 MG/ML (5 ML VIAL) IV ONE (09:46)
[2024-06-28] MEDS ORDERED: NEOSTIGMINE 1 MG/ML 10 ML VIAL ONE (09:46)
[2024-06-28] MEDS ORDERED: PROPOFOL 10 MG/ML 20 ML VIAL IV ONE (09:46)
[2024-06-28] MEDS ORDERED: GLYCOPYRROLATE 0.2 MG/ML 2 ML VIAL ONE (09:46)
[2024-06-28] MEDS ORDERED: fentaNYL (PF) 50 MCG/ML 2 ML AMP ONE (09:46)
[2024-06-28] MEDS: BUPIVACAINE (PF) 0.25% 30 ML VIAL SQ ONE ×2 (10:37→11:35)
[2024-06-28] MEDS: LACTATED RINGERS 1,000 ML IV ONE (10:41)
[2024-06-28] MEDS ORDERED: SIMETHICONE 80 MG CHEWABLE PO PRN (11:50)
--- NOTE | 2024-06-28 11:50 | P.OP ---
Date of Procedure: 06/28/24 Preoperative Diagnosis: Pelvic pain, hematometra, failed endometrial ablation Postoperative Diagnosis: Same plus uterine appearance of adenomyosis Procedure(s) Performed: Robotic assisted vaginal hysterectomy, bilateral salpingectomy, diagnostic cystoscopy Anesthesia: GETA Surgeon: Mariangel Robles Batterboard Setter #1: Michaela Hankins Estimated Blood Loss (ml): 100 IV fluids (ml): 700 Urine output (ml): 100 (Clear yellow urine noted draining throughout the procedure) Pathology: other (Uterus and cervix bilateral fallopian tubes) Condition: stable Disposition: PACU Indications for Procedure: 49-year-old patient with complaints of increasing pelvic pain for the last 2 to 3 months. Patient did have a endometrial ablation completed in January 2023. Patient states her bleeding has lessened/ceased but increasing pain has been bothersome to her. On ultrasound hematometra was appreciated in the left corneal region. Operative Findings: Enlarged globular hypervascular uterus normal ovaries bilaterally. Description of Procedure: Patient was taken back to the operating room where general anesthesia was obtained without difficulty by the anesthesia department. She was prepped and draped in the normal sterile fashion in the dorsal lithotomy position. Attention then turned to the patient's vaginal vault where a weighted speculum is placed in the posterior vaginal vault the anterior lip of the cervix was visualized and grasped with a single-tooth tenaculum. The endocervical canal was then serially dilated. A Vcare uterine manipulator was then placed. The balloon was insufflated with air and the cervical cap was placed medically against the cervix. Steel catheter was placed under sterile technique. At this time all instruments were removed from the patient's vaginal vault. Attention was then turned to the patient's abdomen where approximately 2 fingerbreadths above the umbilicus a small skin incision is made. Through this incision the Veress needle is placed. Once the Veress needle was deemed to be in the appropriate position with a drop of CO2 pressure CO2 insufflation was allowed to occur. 8 mm trocar and sleeve is placed through the skin incision and toward the pneumoperitoneum with the laparoscope in place. The above-noted findings are not visualized. The additional port sites are now placed at 10 cm lateral and 3 cm inferiorly midline port these are 8 mm ports and placed under direct visualization. In the left upper quadrant a 12 mm trocar and sleeve was placed under direct visualization. At this time the da Do was docked in the usual fashion. The right operative arm with the monopolar scissors, the left operative arm with the bipolar forceps. Attention then turned to the patient's left fallopian tube which was elevated and the mesosalpinx was transected. The utero-ovarian ligament was visualized coagulated distally proximally divided. The round ligament was coagulated distally and proximally and divided. The bladder flap from the left was then created using sharp and blunt dissection. Multiple accessory vessels were appreciated and coagulated separately. Attention was then turned to the patient's right fallopian tube which was elevated and coagulated. The mesosalpinx was transected up to the utero-ovarian ligament it was coagulated distally proximally and divided. The bladder flap from the right was then created using sharp and blunt dissection. The ascending branch of the uterine artery was visualized coagulated and transected. Hemostasis was appreciated. This was then repeated on the opposite side. At this time a Ray-Ernestine was placed into the abdomen to further dissect the bladder away from the operating field. This was then removed. Any points of bleeding were made hemostatic with the polar scissors at this time. A colpotomy incision is now performed in a circumferential fashion. The uterus cervix and bilateral fallopian tubes are now removed through the vaginal opening. The pelvis was then copiously irrigated. Points of bleeding were made hemostatic with moderate. The vaginal cuff was then closed with multiple [id number] sutures of 0 Vicryl. Approximately 5 sutures were used to obtain closure. The pelvis was then irrigated once again a small amount of oozing was noted on the peritoneal edge therefore Surgicel powder was placed along the vaginal cuff. Hemostasis was appreciated after placement of the powder. All instruments were then removed from the patient's abdomen and the da Do robot was undocked in the usual fashion. Steel catheter was removed without difficulty. Cystoscopy was now performed. Cystoscope was placed through the urethra and toward the bladder bladder bubble was appreciated, complete survey of the bladder revealed intact mucosa. Both ureteral orifices were noted to be spilling clear yellow urine. Cystoscopy was removed and Steel catheter was replaced. The vaginal vault was cleared of any clots from the surgery. No bleeding was appreciated. All counts were noted be correct x 2. Patient tolerated procedure well and is resting comfortably.
[2024-06-28] MEDS: IBUPROFEN IV 800 MG in SODIUM CHLORIDE 0.9% 250 ML IV ONE (13:11)
--- NOTE | 2024-06-28 13:12 | P.ANPRN ---
Procedure Note - Anesthesia - Epidural/Spinal Spinal Time Out Performed: Yes Date of Procedure: 06/28/24 Procedure Start Time: 09:01 Procedure Stop Time: 09:05 Location of Patient: PreOp Indication: Acute Post-Operative Pain, Requested by Surgeon Sedation Type: Sedate with meaningful contact maintained Preparation: Sterile Prep Number of Attempts: 1 Position: Sitting Catheter: None Needle Guage: 25 Injectate: fentanyl 12.5mcg with Duramorph 300mcg Blood Aspirated: No Pain Paresthesia on Injection Noted: No Events: Uneventful and Well Tolerated
[2024-06-28] MEDS: ACETAMINOPHEN TAB 500 MG TAB PO SCH (15:30)
[2024-06-28] MEDS: DEXAMETHASONE SOD PHOSPHATE 4 MG/ML 1 ML VIAL IV ONE (15:35)
[2024-06-28] MEDS: ONDANSETRON 4 MG/2 ML VIAL IVP ONE (15:35)
[2024-06-28] MEDS: SCOPOLAMINE 1 MG/72 HR PATCH TRANSDERM ONE (15:36)
[2024-06-28] MEDS: NITROFURANTOIN MONOHYD/M-CRYST 100 MG CAP PO SCH (21:15)
[2024-06-28] MEDS: IBUPROFEN 600 MG TAB PO PRN (21:16)
[2024-06-28] MEDS: diphenhydrAMINE 50 MG CAP PO PRN (21:35)
[2024-06-29] MEDS: SENNOSIDES-DOCUSATE SODIUM 1 EACH TAB PO SCH (00:35)
[2024-06-29 03:59] LABS: Basophils % (A) 0 %; Eosinophils % (A) 0 %; HCT 34.5 % (34.0-46.0); HGB 11.4 gm/dL (11.4-16.0); Lymphocytes # (A) 1.6 k/uL (1.0-4.8); Lymphocytes % (A) 18 %; MCH 30.6 pg (25.0-35.0); MCHC 33.1 g/dL (31.0-37.0); MCV 92.5 fL (80.0-100.0); Mean Platelet Volume 10.1; Monocytes # (A) 0.4 k/uL (0-1.0); Monocytes % (A) 4 %; Neutrophils # (A) 6.8 k/uL (1.3-7.7); Neutrophils % (A) 75 %; Platelet Count 205 k/uL (150-450); RBC 3.73 m/uL (3.80-5.40); RDW 12.9 % (11.5-15.5)
[2024-06-29 09:46] VITALS: BP 112/64; PULSE 69; TEMP 97.9
--- NOTE | 2024-06-29 11:19 | P.PN ---
Progress Note - Text 06/29/24 632AM - 49year-old female status post vaginal hysterectomy, patient received spinal Duramorph for postop pain control. Patient seen and evaluated, patient has a VAS of 5 with complaints of pruritus and has received Benadryl. she has also been taking oral pain medication
--- NOTE | 2024-06-29 11:49 | P.DS ---
Providers Date of admission: 06/28/2024 Expected date of discharge: 06/29/24 Attending physician: Mariangel Robles Primary care physician: [facility] Course: Ms. Tinoco is a 49 year old female who is post-op day #1 s/p a Robotic Assisted Total Laparoscopic Hysterectomy, Bilateral Salpingectomy, and Diagnostic Cystoscopy for abnormal uterine bleeding and dysmenorrhea that failed endometrial ablation. She is doing well this morning and desires discharge home. She is ambulating normally, tolerating PO without nausea or vomiting, pain is well controlled with medications, and she is voiding s/p canchola catheter removal. She will be discharged home with Motrin and Tylenol to use in a scheduled fashion. She will also go home with a 3-day supply of Oxycodone 5mg to take as needed for breakthrough pain. Post-operative restrictions are reviewed with the patient including no lifting heavier than 15 pounds for 6 weeks and pelvic rest for at least 6 weeks/until cleared by Dr. Robles. All questions are answered. She will follow up with Dr. Robles in 2 weeks in the office. Assessment: 49 year old POD#1 s/p PAYTON, BS, Cystoscopy Patient Condition at Discharge: Good Plan - Discharge Summary Discharge Rx Participant: Yes New Discharge Prescriptions: New Acetaminophen Tab [Tylenol] 650 mg PO Q6H PRN #30 tab PRN Reason: Mild Pain (Scale 1 To 3) Ibuprofen [Motrin] 600 mg PO Q6HR PRN #30 tab PRN Reason: Mild Pain (Scale 1 To 3) oxyCODONE HCL [Roxicodone] 5 mg PO Q6HR PRN 3 Days #12 tab PRN Reason: Breakthrough Pain No Action Nitrofurantoin Monohyd/M-Cryst [Macrobid] 100 mg PO Q12HR Discharge Medication List Nitrofurantoin Monohyd/M-Cryst [Macrobid] 100 mg PO Q12HR 06/28/24 [History] Acetaminophen Tab [Tylenol] 650 mg PO Q6H PRN #30 tab 06/29/24 [Rx] Ibuprofen [Motrin] 600 mg PO Q6HR PRN #30 tab 06/29/24 [Rx] oxyCODONE HCL [Roxicodone] 5 mg PO Q6HR PRN 3 Days #12 tab 06/29/24 [Rx] Follow up Appointment(s)/Referral(s): Mariangel Robles DO [Doctor of Osteopathic Medicine] - 2 Weeks Patient Instructions/Handouts: *Surgery [facility] - Scopalamine Patch Instructions Activity/Diet/Wound Care/Special Instructions: Postoperative Instructions 1. No heavy lifting or straining (exercising) until after 6 week checkup. 2. Do not resume sexual relations for 6 weeks or longer if uncomfortable. 3. Keep abdominal incision clean and dry: You may wear a dressing if more comfortable. 4. Keep any areas repaired with stitches clean and dry. 5. Call the office, , within the next week to make appointment for your 2 week checkup 6. Report any of the following occurrences to the doctor promptly: a. Heavy, excessive bleeding b. Chills, fever c. Burning or frequency of urination d. Pain or redness around the incisions Discharge Disposition: HOME SELF-CARE
== END 2024-06-29 12:10 | disposition home or self-care (01) ==
LOC: OR 07:46 → 4FBP 11:40 → OR 06-29 12:10
PROVIDERS: ATTEND Obstetrics & Gynecology Obstetrics
CPT/HCPCS: 58571; 81025; 85025; 87636; 88307; S2900

== ENCOUNTER → 2025-03-30 | Outpatient (CLI) | payer OTHER ==
[2025-03-30 13:35] LABS: Basophils # (A) 0.06 X 10*3/uL (0.00-0.10); Basophils % (A) 1.4 %; Eosinophils # (A) 0.19 X 10*3/uL (0.04-0.35); Eosinophils % (A) 4.5 %; HCT 41.5 % (37.2-46.3); HGB 14.1 g/dL (12.0-15.0); Immature Grans, Automated 0.20 %; Lymphocytes # (A) 1.63 X 10*3/uL (0.90-5.00); Lymphocytes % (A) 38.8 %; MCH 30.0 pg (27.0-32.0); MCHC 34.0 g/dL (32.0-37.0); MCV 88.3 FL (80.0-97.0); Monocytes # (A) 0.28 X 10*3/uL (0.20-1.00); Monocytes % (A) 6.7 %; NRBC Per 100 WBC 0 X 10*3/uL (0.00-0.01); Neutrophils # (A) 2.03 X 10*3/uL (1.80-7.70); Neutrophils % (A) 48.4 %; Platelet Count 183 X 10*3/uL (140-440); RBC 4.70 X 10*6/uL (4.10-5.20); RDW 12.8 % (11.5-14.5); WBC 4.20 X 10*3/uL (4.50-10.00)
[2025-03-30 14:01] LABS: ALT 18 U/L (8-44); AST 22 U/L (13-35); Albumin 4.2 g/dL (3.8-4.9); Albumin/Globulin Ratio 2.00 Ratio (1.60-3.17); Alkaline Phosphatase 76 U/L (41-126); Anion Gap 8.90 mmol/L (4.00-12.00); BUN/Creat Ratio 13.56 Ratio (12.00-20.00); Blood Urea Nitrogen 12.2 mg/dL (9.0-27.0); Calcium 9.3 mg/dL (8.7-10.3); Carbon Dioxide 24.1 mmol/L (21.6-31.8); Chloride 102 mmol/L (96-109); Globulin 2.1 g/dL (1.6-3.3); Glucose 92 mg/dL (70-110); Iron 91 UG/DL (50-170); Magnesium 2.0 mg/dL (1.5-2.4); Potassium 4.2 mmol/L (3.5-5.5); Sodium 135 mmol/L (135-145); T4, Free (Free Thyroxine) 1.31 ng/dL (0.80-1.80); Total Iron Binding Capacity 393 UG/DL (228-460); Total Protein 6.3 g/dL (6.2-8.2); Vitamin B12 832.0 pg/mL (200.0-944.0)
== END | disposition home or self-care (01) ==
LOC: LABWHC1 08:50
PROVIDERS: ATTEND Family Medicine
DX: E66.9 Obesity, unspecified (principal); E53.8 Deficiency of other specified B group vitamins; G93.32 Myalgic encephalomyelitis/chronic fatigue syndrome; D50.9 Iron deficiency anemia, unspecified; G25.81 Restless legs syndrome; R60.9 Edema, unspecified; R16.0 Hepatomegaly, not elsewhere classified; R73.9 Hyperglycemia, unspecified
CPT/HCPCS: 36415; 80053; 82533; 82607; 83036; 83540; 83550; 83735; 84439; 84443; 85025